=== PATIENT | female | born 1970 | race Caucasian/White ===

== ENCOUNTER 2022-02-12 09:43 | Day surgery (SDC) | payer SELFPAY ==
[~2022-02-12] VITALS: Ht 167 cm; Wt 73.2 kg
[~2022-02-12 09:43] MED LIST: AGM875T PO; HYDR1TAB PO; LISI2.5T PO; LOVA40TA2 PO; MTF500T PO; PENI500T PO
[2022-02-12 10:01] LABS: BASOPHILS % (AUTO) 0 % (0-10); EOSINOPHILS # (AUTO) 0.1 10^3/uL (0.0-0.3); EOSINOPHILS % (AUTO) 1 % (0-10); HEMATOCRIT 45 % (35-52); HEMOGLOBIN 15.8 g/dL (11.5-16.0); LYMPHOCYTES # (AUTO) 2.2 10^3/uL (1.0-4.0); LYMPHOCYTES % (AUTO) 24 % (12-44); MEAN CORPUSCULAR HEMOGLOBIN 29 pg (25-34); MEAN CORPUSCULAR HGB CONC 35 g/dL (32-36); MEAN CORPUSCULAR VOLUME 84 fL (80-99); MEAN PLATELET VOLUME 10.5 fL (9.0-12.2); MONOCYTES # (AUTO) 0.4 10^3/uL (0.0-1.0); MONOCYTES % (AUTO) 4 % (0-12); NEUTROPHILS # (AUTO) 6.4 10^3/uL (1.8-7.8); NEUTROPHILS % (AUTO) 71 % (42-75); PLATELET COUNT 318 10^3/uL (130-400); WHITE BLOOD COUNT 9.1 10^3/uL (4.3-11.0)
[2022-02-12] MEDS ORDERED: NITROGLYCERIN 0.4 MG SL TABS BTL 25'S SL ONE (10:13)
[2022-02-12] MEDS ORDERED: ASPIRIN 81 MG CHEW (CHILDREN'S ASA) ONE (10:13)
[2022-02-12] MEDS ORDERED: ASPIRIN 81 MG CHEW (CHILDREN'S ASA) PO ONE (10:15)
[2022-02-12] MEDS: NITROGLYCERIN 0.4 MG SL TABS BTL 25'S SL PRN ×2 (10:17→10:28)
--- NOTE | 2022-02-12 10:17 | ED Chest Pain ---
General Chief Complaint: Chest Pain Stated Complaint: CHEST/JAW PAIN Source: patient Exam Limitations: no limitations History of Present Illness Date Seen by Provider: Feb 12, 2022 Time Seen by Provider: 10:05 Initial Comments Patient is a 51-year-old female history of diabetes and hypertension, medical noncompliance, currently not on any of her prescribed medications who presents to the emergency department with a chief complaint of chest pressure/heaviness o nset around 2 AM this morning. Patient states that she was restless last night not sleeping well when she noticed the chest pressure. She states it radiates up into the both sides of her jaw. She denies shortness of breath, diaphoresis or nausea with it. She has never had anything like it before. She took some [id number] mg when she got up this morning and ate some oatmeal and felt like the pressure got worse. She states she did take her dog for a walk and became profusely diaphoretic. She currently rates her chest pressure and heaviness at a "5". She states it is still radiating into her jaw. She is a smoker, diabetic, hypertensive. She has a family history of her father who at age 53 from a heart attack. She has not been to the clinic for medications in quite a while. No recent illnesses such as fevers, chills, productive cough. No burning with urination, no diarrhea. No swelling in her legs or cramping in her calves. All other review of systems reviewed and negative except as stated. Timing/Duration: 4-6 hours Severity/Quality: moderate, pressure, tightness (Heaviness) Location: substernal Radiation: jaw Activities at Onset: sleep Prior CP/Workup: no prior chest pain, no prior cardiac workup ASA po JUNIOR ACCOUNT EXECUTIVE: No NTG SL JUNIOR ACCOUNT EXECUTIVE: No Associated Symptoms: denies symptoms Allergies and Home Medications Allergies Coded Allergies: No Known Allergies (Verified Allergy, Unknown, 10/30/06) Patient Home Medication List Home Medication List Reviewed: Yes Amoxicillin/Clavulanate K (Augmentin 875-125 Tablet) 1 Tab Tablet, 1 TAB PO BID Prescribed by: AMANDA BRADLEY on 12/16/11 1605 Lisinopril (Prinivil) 2.5 Mg Tablet, 2.5 MG PO DAILY, (Reported) Entered as Reported by: LONG ORELLANA on 12/16/11 1507 Lovastatin (Lovastatin 40 Mg) 40 Mg Tablet, 1 EACH PO DAILY WITH SUPPER, (Reported) Entered as Reported by: LONG ORELLANA on 12/16/11 1507 Metformin Hcl (Metformin 500 Mg) 500 Mg Tablet, 1 EACH PO BID WITH MEALS, (Reported) Entered as Reported by: LEILA WEINER on 01/25/10 1858 Review of Systems Review of Systems Constitutional: see HPI EENTM: Other (Jaw pain) Respiratory: No Symptoms Reported Cardiovascular: Chest Pain Gastrointestinal: No Symptoms Reported Genitourinary: No Symptoms Reported Musculoskeletal: no symptoms reported Skin: no symptoms reported Psychiatric/Neurological: No Symptoms Reported All Other Systems Reviewed Negative Unless Noted: Yes Past Bxbtyzo-Wecmlc-Bopnbk Hx Past Medical History Reproductive Disorders: No Physical Exam Vital Signs Vital Signs - First Documented 02/12/22 09:55 Temp 36.7 Pulse 108 Resp 18 B/P (MAP) 173/105 (127) Pulse Ox 97 O2 Delivery Room Air Capillary Refill : Height, Weight, BMI Height: '" Weight: lbs. oz. kg; BMI Method: General Appearance: No Apparent Distress, WD/WN HEENT: PERRL/EOMI Neck: Normal Inspection Respiratory: Lungs Clear, Normal Breath Sounds, No Accessory Muscle Use, No Respiratory Distress Cardiovascular: Regular Rate, Rhythm, Normal Peripheral Pulses (2+ radial pulses bilaterally) Gastrointestinal: Normal Bowel Sounds, Non Tender, Soft Extremity: Normal Capillary Refill, Normal Inspection, Normal Range of Motion, Non Tender, No Calf Tenderness, No Pedal Edema Neurologic/Psychiatric: Alert, Oriented x3, No Motor/Sensory Deficits, Normal Mood/Affect Skin: Normal Color, Warm/Dry Progress/Results/Core Measures Results/Orders Lab Results Laboratory Tests Test 02/12/22 09:51 02/12/22 10:05 Range/Units White Blood Count 9.1 4.3-11.0 10^3/uL Red Blood Count 5.39 H 3.80-5.11 10^6/uL Hemoglobin 15.8 11.5-16.0 g/dL Hematocrit 45 35-52 % Mean Corpuscular Volume 84 80-99 fL Mean Corpuscular Hemoglobin 29 25-34 pg Mean Corpuscular Hemoglobin Concent 35 32-36 g/dL Red Cell Distribution Width 13.0 10.0-14.5 % Platelet Count 318 130-400 10^3/uL Mean Platelet Volume 10.5 9.0-12.2 fL Immature Granulocyte % (Auto) 0 % Neutrophils (%) (Auto) 71 42-75 % Lymphocytes (%) (Auto) 24 12-44 % Monocytes (%) (Auto) 4 0-12 % Eosinophils (%) (Auto) 1 0-10 % Basophils (%) (Auto) 0 0-10 % Neutrophils # (Auto) 6.4 1.8-7.8 10^3/uL Lymphocytes # (Auto) 2.2 1.0-4.0 10^3/uL Monocytes # (Auto) 0.4 0.0-1.0 10^3/uL Eosinophils # (Auto) 0.1 0.0-0.3 10^3/uL Basophils # (Auto) 0.0 0.0-0.1 10^3/uL Immature Granulocyte # (Auto) 0.0 0.0-0.1 10^3/uL Prothrombin Time 12.6 12.2-14.7 SEC INR Comment 0.9 0.8-1.4 Activated Partial Thromboplast Time 28 24-35 SEC Sodium Level 133 L 135-145 MMOL/L Potassium Level 4.2 3.6-5.0 MMOL/L Chloride Level 99 98-107 MMOL/L Carbon Dioxide Level 24 21-32 MMOL/L Anion Gap 10 5-14 MMOL/L Blood Urea Nitrogen 11 7-18 MG/DL Creatinine 0.79 0.60-1.30 MG/DL Estimat Glomerular Filtration Rate 90 BUN/Creatinine Ratio 14 Glucose Level 432 *H 70-105 MG/DL Calcium Level 10.2 H 8.5-10.1 MG/DL Corrected Calcium 10.0 8.5-10.1 MG/DL Magnesium Level 1.7 1.6-2.4 MG/DL Total Bilirubin 0.5 0.1-1.0 MG/DL Aspartate Amino Transf (AST/SGOT) 28 5-34 U/L Alanine Aminotransferase (ALT/SGPT) 26 0-55 U/L Alkaline Phosphatase 156 H 40-136 U/L Myoglobin 25.4 10.0-92.0 NG/ML Troponin I < 0.028 <0.028 NG/ML Total Protein 7.2 6.4-8.2 GM/DL Albumin 4.2 3.2-4.5 GM/DL Glucometer 392 H 70-110 MG/DL My Orders Orders - CHAZ GLEZ MD Cbc With Automated Diff (02/12/22:52) Magnesium (02/12/22:52) Chest 1 View, Ap/Pa Only (02/12/22:52) Ekg Tracing (02/12/22:52) Comprehensive Metabolic Panel (02/12/22:52) Myoglobin Serum (02/12/22:52) Protime With Inr (02/12/22) Partial Thromboplastin Time (02/12/22:52) O2 (02/12/22:) Monitor-Rhythm Ecg Trace Only (02/12/22) Lipid Panel (02/13/22 06:00) Ed Iv/Invasive Line Start (02/12/22:52) Troponin I [place] (02/12/22 09:52) Aspirin Chewable Tablet (Baby Aspirin Ch (02/12/22 10:15) Nitroglycerin 0.4 Mg Btl 25's (Nitrostat (02/12/22 10:15) Aspirin Chewable Tablet (Baby Aspirin Ch (02/12/22 10:13) Nitroglycerin 0.4 Mg Btl 25's (Nitrostat (02/12/22 10:13) Ns Iv 1000 Ml (Sodium Chloride 0.9%) (02/12/22 11:00) Insulin (Regular) Human (Novolin R (Per (02/12/22 11:00) Morphine Injection (Morphine Injection (02/12/22 11:32) Medications Given in ED Current Medications Medications Dose Ordered Sig/Sy Route Start Time Stop Time Status Last Admin Dose Admin Aspirin 324 mg ONCE ONCE PO 02/12/22 10:15 02/12/22 10:16 DC 02/12/22 10:16 324 MG Insulin Human Regular 10 unit ONCE ONCE SC 02/12/22 11:00 02/12/22 11:01 DC 02/12/22 11:16 10 UNIT Nitroglycerin 1 TAB Q 5 MIN X 3 NEEDED PRN SL 02/12/22 10:15 02/12/22 10:28 0.4 MG Vital Signs/I&O 02/12/22 02/12/22 02/12/22 09:55 10:17 10:28 Temp 36.7 Pulse 108 104 108 Resp 18 B/P (MAP) 173/105 (127) 134/88 (103) 122/81 (95) Pulse Ox 97 O2 Delivery Room Air Admisison Planning May Need Admission (Planning): 10:57 Progress Progress Note : Time: 10:57 Progress Note Notified by nursing staff that the patient had improvement in chest pain from her initial presentation down to a "3" after 2 sublingual nitro. Her systolic blood pressure went from 170 systolic to 110. Will talk to the rv repairer on- call, Dr. Mark as well as medicine for admission for cardiac stress test. Initial ECG Impression Date: Feb 12, 2022 Initial ECG Impression Time: 09:53 Initial ECG Rate: 103 Initial ECG Rhythm: Normal Sinus Initial ECG Intervals LA interval 145 QRS 117 QTC 404 Comment Sinus tachycardia, no ectopy, no ST segment elevation or depression Diagnostic Imaging Diagonstic Imaging: Xray Plain Films/CT/US/NM/MRI: chest Comments [facility], [place] NAME: [facility] REC#: [id number] PT STATUS: REG ER : 1970 PHYSICIAN: CHAZ GLEZ MD ADMIT DATE: 02/12/22/ER Draft Date of Exam:02/12/22 CHEST 1 VIEW, AP/PA ONLY INDICATION: Chest pain. FINDINGS: The lungs are clear. No failure, effusion, or pneumothorax. IMPRESSION: No acute appearing abnormality. Dictated on workstation # [id number] Dict: 02/12/22 1042 Trans: 02/12/22 1044 [id number] Interpreted by: RENETTA THRASHER Electronically signed by: Departure Communication (Admissions) Time/Spoke to Admitting Phy: 11:[address] Domingo, she will put in que'd orders Time/Spoke to Consulting Phy: 11:[address] Mark - will see in consult Impression Primary Impression: Chest pain Qualified Codes: R07.9 - Chest pain, unspecified Additional Impressions: Hyperglycemia due to diabetes mellitus Medical non-compliance Tobacco use Disposition: ADMITTED INPATIENT Condition: Stable Admissions Decision to Admit Reason: Admit from ER (General) Decision to Admit/Date: Feb 12, 2022 Time/Decision to Admit Time: 10:58 Departure-Patient Inst. Referrals: [facility] (PCP/Family) Primary Care Physician CHAZ GLEZ MD Feb 12, 2022 10:17
[2022-02-12 10:24] LABS: ALBUMIN 4.2 GM/DL (3.2-4.5); INR 0.9 (0.8-1.4); POTASSIUM 4.2 MMOL/L (3.6-5.0); PROTHROMBIN TIME PATIENT 12.6 SEC (12.2-14.7)
[2022-02-12 10:25] LABS: CALCIUM 10.2 MG/DL (8.5-10.1)
[2022-02-12 10:27] LABS: TOTAL PROTEIN 7.2 GM/DL (6.4-8.2)
[2022-02-12 10:29] LABS: BILIRUBIN,TOTAL 0.5 MG/DL (0.1-1.0)
[2022-02-12 10:30] LABS: CREATININE SERUM 0.79 MG/DL (0.60-1.30)
[2022-02-12 10:33] LABS: MAGNESIUM 1.7 MG/DL (1.6-2.4)
--- NOTE | 2022-02-12 10:45 | Diagnostic Imaging Report ---
INDICATION: Chest pain. FINDINGS: The lungs are clear. No failure, effusion, or pneumothorax. IMPRESSION: No acute appearing abnormality. Dictated by: Dictated on workstation # [id number]
[2022-02-12] MEDS ORDERED: inSUlin (REGULAR) HUMAN 1 UNIT/0.01 ML (CHARGE PER UNIT) SC ONE (11:00)
[2022-02-12] MEDS ORDERED: NS IV 1000 ML 1,000 ML IV SCH (11:00)
[2022-02-12] MEDS ORDERED: morphine INJ 10 MG/ML 1ML (SYR OR VIAL) IVP STA (11:32)
[2022-02-12] MEDS ORDERED: PATIENT MAY USE OWN MEDS, ALL PO SCH (13:45)
[2022-02-12] MEDS ORDERED: ONDANSETRON 4 MG/2 ML (SDV) Z0FRAN IVP PRN (13:45)
[2022-02-12] MEDS ORDERED: morphine INJ 4 MG/ML 1 ML (VIAL/SYRINGE) IV PRN (13:45)
--- NOTE | 2022-02-12 14:18 | Consultation-Cardiology ---
HPI-Cardiology Cardiology Consultation: Date of Consultation 02/12/22 Date of Admission 02/12/22 Attending Physician [facility] Admitting Physician Admitting Physician: Marian Domingo MD Attending Physician: Marian Domingo MD Consulting Physician TA BUENROSTRO JR, MD HPI: Time Seen by a Provider: 14:58 Chief Complaint: REASON FOR CONSULTATION: Chest pain. I had the pleasure of seeing Deidre on the cardiac stepdown unit at [facility] in [place], [place] this afternoon. She has no known history of coronary artery disease but does have risk factors of hypertension, hyperlipidemia, type 2 diabetes mellitus, cigarette smoking and family history of premature coronary disease. Early this morning she woke up from sleep with substernal chest tightness. This was in the center of her chest. This radiated towards her jaw. She sat up in bed and waited for this to pass and then went back to sleep. Later on in the morning around 530 she woke up again with substernal chest tightness radiating to her jaw. She felt slightly diaphoretic. She got up and took her son to work and then later came back home and had breakfast. The chest discomfort was waxing and waning at that point time. However, after having breakfast and using the bathroom, the chest discomfort became worse and she had her daughter bring her to the emergency room for further evaluation. In the emergency room, she was given 1 sublingual nitroglycerin with helped with the discomfort but this did not completely resolve. She was later given morphine and the chest discomfort resolved. When I saw the patient, she denied any further chest discomfort. She has had some more mild episodes of similar chest discomfort in the past but these were short-lived and she did not seek medical attention. She denies dyspnea, paroxysmal nocturnal dyspnea, orthopnea, palpitations, lightheadedness, syncope, or ankle edema. She reports that about 1 year ago, she stopped all of her medication. Cost has been an issue. Because of the chest discomfort, a cardiology consultation was requested. Certain portions of this document may have been dictated utilizing voice recognition technology. Inherent to this technology, typographical and gramm atical errors may exist. As much as I am diligent to identify and correct these mistakes, some errors may remain in the document. Review of Systems-Cardiology Review of Systems Other comments Review of 10 organ systems is as per the history of present illness, otherwise negative. All Other Systems Reviewed Negative Unless Noted: Yes HGE-Chfhkw-Tmplcl Hx Patient Social History Smoking Status: Current Everyday Smoker Have you traveled recently?: No Alcohol Use?: Yes Pt feels they are or have been: No Tobacco type used: Cigars, Cigarettes Past Medical History PMH As described under Assessment. Family Medical History Family Medical History: Her father of a myocardial infarction at the age of 56. Allergies and Home Medications Allergies Coded Allergies: NKANo Known Allergies (Verified Allergy, Unknown, 02/12/22) Patient Home Medication List Home Medication List Reviewed: Yes Amoxicillin/Clavulanate K (Augmentin 875-125 Tablet) 1 Tab Tablet, 1 TAB PO BID Prescribed by: AMANDA BRADLEY on 12/16/11 1605 Lisinopril (Prinivil) 2.5 Mg Tablet, 2.5 MG PO DAILY, (Reported) Entered as Reported by: LONG ORELLANA on 12/16/11 1507 Lovastatin (Lovastatin 40 Mg) 40 Mg Tablet, 1 EACH PO DAILY WITH SUPPER, (Reported) Entered as Reported by: LONG ORELLANA on 12/16/11 1507 Metformin Hcl (Metformin 500 Mg) 500 Mg Tablet, 1 EACH PO BID WITH MEALS, (Reported) Entered as Reported by: LEILA WEINER on 01/25/10 1858 Exam Vital Signs Vital Signs Date Time Temp Pulse Resp B/P (MAP) Pulse Ox O2 Delivery O2 Flow Rate FiO2 02/12/22 14:24 98 Room Air 02/12/22 14:20 37.0 89 19 105/81 (89) Physical Exam General: Alert. No acute distress. Well nourished and appears stated age. Eye: Extraocular movements are intact. Conjunctivae are clear. There are no xanthelasma. HENT: Normocephalic. Atraumatic. Carotid pulsations 2/2 without bruits. Poor dentition. Neck: Jugular venous pressure does not appear elevated. No thyromegaly appreciated. Respiratory: Lungs have scattered wheezes bilaterally. Respirations are non- labored. Breath sounds are equal. Symmetrical chest wall expansion. Cardiovascular: Normal rate. Regular rhythm. No murmur. No gallop. Point of maximal impulse is not appear displaced. Good pulses equal in all extremities. No edema. Gastrointestinal: Soft. Normal bowel sounds. Skin: Skin turgor is normal. There is no pallor. Musculoskeletal: No kyphosis or scoliosis appreciated. Neurologic: Alert and oriented to person, place, time. Cranial nerves 3-12 appear grossly intact. The patient has good motor tone strength in the upper and lower extremities bilaterally. Psychiatric: Cooperative. Appropriate mood & affect. Labs Laboratory Tests Test 02/12/22 09:51 02/12/22 10:05 02/12/22 11:50 Range/Units White Blood Count 9.1 4.3-11.0 10^3/uL Red Blood Count 5.39 H 3.80-5.11 10^6/uL Hemoglobin 15.8 11.5-16.0 g/dL Hematocrit 45 35-52 % Mean Corpuscular Volume 84 80-99 fL Mean Corpuscular Hemoglobin 29 25-34 pg Mean Corpuscular Hemoglobin Concent 35 32-36 g/dL Red Cell Distribution Width 13.0 10.0-14.5 % Platelet Count 318 130-400 10^3/uL Mean Platelet Volume 10.5 9.0-12.2 fL Immature Granulocyte % (Auto) 0 % Neutrophils (%) (Auto) 71 42-75 % Lymphocytes (%) (Auto) 24 12-44 % Monocytes (%) (Auto) 4 0-12 % Eosinophils (%) (Auto) 1 0-10 % Basophils (%) (Auto) 0 0-10 % Neutrophils # (Auto) 6.4 1.8-7.8 10^3/uL Lymphocytes # (Auto) 2.2 1.0-4.0 10^3/uL Monocytes # (Auto) 0.4 0.0-1.0 10^3/uL Eosinophils # (Auto) 0.1 0.0-0.3 10^3/uL Basophils # (Auto) 0.0 0.0-0.1 10^3/uL Immature Granulocyte # (Auto) 0.0 0.0-0.1 10^3/uL Prothrombin Time 12.6 12.2-14.7 SEC INR Comment 0.9 0.8-1.4 Activated Partial Thromboplast Time 28 24-35 SEC Sodium Level 133 L 135-145 MMOL/L Potassium Level 4.2 3.6-5.0 MMOL/L Chloride Level 99 98-107 MMOL/L Carbon Dioxide Level 24 21-32 MMOL/L Anion Gap 10 5-14 MMOL/L Blood Urea Nitrogen 11 7-18 MG/DL Creatinine 0.79 0.60-1.30 MG/DL Estimat Glomerular Filtration Rate 90 BUN/Creatinine Ratio 14 Glucose Level 432 *H 70-105 MG/DL Calcium Level 10.2 H 8.5-10.1 MG/DL Corrected Calcium 10.0 8.5-10.1 MG/DL Magnesium Level 1.7 1.6-2.4 MG/DL Total Bilirubin 0.5 0.1-1.0 MG/DL Aspartate Amino Transf (AST/SGOT) 28 5-34 U/L Alanine Aminotransferase (ALT/SGPT) 26 0-55 U/L Alkaline Phosphatase 156 H 40-136 U/L Myoglobin 25.4 10.0-92.0 NG/ML Troponin I < 0.028 <0.028 NG/ML Total Protein 7.2 6.4-8.2 GM/DL Albumin 4.2 3.2-4.5 GM/DL Glucometer 392 H 319 H 70-110 MG/DL Radiology ECHOCARDIOGRAM (02/12/2022): 1. Left ventricle: The cavity size is normal. There is moderate concentric hypertrophy. Systolic function is normal. The estimated ejection fraction is 60- 65%. There were no regional wall motion abnormalities identified. Doppler parameters are consistent with abnormal left ventricular relaxation (grade 1 diastolic dysfunction). 2. Aortic valve: There is mild aortic valve sclerosis. 3. Pulmonary arteries: The estimated pulmonary artery systolic pressure is 25 mmHg assuming a right atrial pressure of 5 mmHg. ECG Impression ECG Comment Sinus tachycardia at 103 bpm with small, nondiagnostic inferior Q waves. Diagnosis/Problems Diagnosis/Problems (1) Chest pain Status: Acute Assessment & Plan: Exact etiology unclear. She does have multiple cardiac risk factors which makes coronary ischemia distinct possibility. Her first troponin level was undetectable. She just had another troponin level drawn. She was given aspirin in the emergency room. Her electrocardiogram shows small inferior Q waves but no evidence of ischemia at rest. Her echocardiogram was unremar kable. I will start her on a proton pump inhibitor in the event that her chest discomfort could be related to esophageal reflux disease. I also recommend a nuclear stress test which we will schedule for tomorrow morning. (2) Abnormal electrocardiogram Assessment & Plan: She has small, nondiagnostic inferior Q waves that do not quite meet criteria for an inferior infarct. However, in light of the chest pain, we will proceed with a stress test as above. (3) Primary hypertension Assessment & Plan: She had been on lisinopril in the past but stopped this 1 year ago when she stopped her other medications. She is currently normotensive. We will continue to monitor her blood pressure. (4) Mixed hyperlipidemia Assessment & Plan: Lipid panel is pending for the morning. We may need to restart a statin medication. (5) Type 2 diabetes mellitus without complication Status: Chronic Assessment & Plan: This will be managed by the hospitalist. I added a hemoglobin A1c to the admission blood work. (6) Family history of premature coronary artery disease Assessment & Plan: She needs to keep all of her modifiable risk factors under good control. (7) Cigarette smoker Status: Chronic Assessment & Plan: She needs to quit smoking. She was counseled in this regard. Problem Qualifiers (1) Chest pain: Chest pain type: unspecified Qualified Codes: R07.9 - Chest pain, unspecified TA BUENROSTRO JR, MD Feb 12, 2022 14:18
[2022-02-12 14:20] VITALS: BP 105/81
[2022-02-12] MEDS ORDERED: FLU QUADRIvalent (6 months+) 60 mcg/0.5 ml 2022-23 (Fluzone) IM ONE (14:30)
[2022-02-12] MEDS ORDERED: REGADENOSON 0.4 MG/5 ML SYR (LEXISCAN) IV ONE (14:45)
[2022-02-12 15:09] VITALS: BP 114/72
[2022-02-12] MEDS ORDERED: PANTOPRAZOLE 40 MG (PROTONIX) TAB PO NR (15:15)
[2022-02-12] MEDS ORDERED: CRAN400C PO (15:36)
[2022-02-12] MEDS ORDERED: MULT-1136 PO (15:36)
[2022-02-12] MEDS ORDERED: CALC600T91 PO (15:36)
--- NOTE | 2022-02-12 15:40 | History & Physical ---
THAI GUZMANNAKt Granado 02/12/22 1540: HPI History of Present Illness: Deidre Aguilar, 51 yo F, admitted to cardiac unit for chief complaint of chest pain. Her chest pain woke her from sleep this morning. She states the pain got bad then tapered off in severity, and then later felt bad again. She describes her pain as sharp at worst and settles down to a dull feeling. At home it was a 10/10 pain but the rest of the day has been fluctuating between a 5-10/10. Pt reports her chest pain got better when she was given morphine in the ED. Nothing has made it worse. Also has had bilateral jaw pain with the chest pain. Came in to the ED with encouragement from her family. This morning she was able to eat oatmeal and drink sugar free pop but that is all. Pt reports has not been taking any medications for the past year due to lack of insurance. She does have DMII and states she monitors her sugars at home at least 3x per day. Usually runs over [address] Mark consulted from Cardiology. ROS: jaw pain, diaphoresis, infrequent headaches; Neg: fevers, nausea, vomiting, constipation, diarrhea, blurry vision PHM: diabetes type II, tremors PSH: 3 c-sections, cholecystectomy, ventral hernia with mesh repair FamHx: F: stroke; M: tremors; Brother: tremors; 2 Sisters (adopted) SocHx: Smokes 1/2-1 ppd for 32 years; denies illicit substances; uses alcohol rarely Source: patient Exam Limitations: no limitations Date seen by provider: Feb 12, 2022 Time Seen by Provider: 15:40 Attending Physician [facility] PCP Admitting Physician: Janny Olson MD Attending Physician: Janny Olson MD Consult Date of Admission Feb 12, 2022 at 11:44 Home Medications Home Medications Reviewed patient Home Medication Reconciliation performed by pharmacy medication reconciliations spray technician and/or nursing. Patients Allergies have been reviewed. Allergies Coded Allergies: NKANo Known Allergies (Verified Allergy, Unknown, 02/12/22) CHL-Bexhct-Rprzut Hx Patient Social History Marrital Status: Number of Children: 3 Number of living children: 3 Employed/Student: unemployed Smoking Status: Current Everyday Smoker (1/2-1 pdd for 32 years) Cigaretts per day: 20 (10 to 20 cigarettes per day) Alcohol Use?: Yes Tobacco type used: Cigarettes Have you traveled recently?: No Immunizations Up To Date Influenza Vaccine Up-to-Date: Yes; Up-to-Date First/Initial COVID19 Vaccinat: 2020 Past Medical History PHM: diabetes type II tremors PSH: 3 c-sections cholecystectomy ventral hernia with mesh repair Family Medical History Significant Family History: Heart Disease, Diabetes Family History: Premature coronary artery disease Review of Systems ([facility]) Constitutional: diaphoresis Cardiovascular: chest pain Musculoskeletal: other (jaw pain every time CP has felt at it's worst) Reviewed Test Results Reviewed Test Results Lab Laboratory Tests 02/12/22 09:51: Red Blood Count 5.39H, Sodium Level 133L, Glucose Level 432*H, Calcium Level 10.2H, Alkaline Phosphatase 156H 02/12/22 10:05: Glucometer 392H 02/12/22 11:50: Glucometer 319H 02/12/22 15:00: Troponin I 0.106H 02/12/22 15:38: Glucometer 181H Radiology CHEST 1 VIEW, AP/PA ONLY INDICATION: Chest pain. FINDINGS: The lungs are clear. No failure, effusion, or pneumothorax. IMPRESSION: No acute appearing abnormality. Physical Exam-([facility]) Physical Exam Vital Signs VS - Last 72 Hours, by Label 02/12/22 02/12/22 02/12/22 02/12/22 09:55 10:17 10:28 13:40 Temp 36.7 37.0 Pulse 108 104 108 82 Resp 18 19 B/P (MAP) 173/105 (127) 134/88 (103) 122/81 (95) 104/79 Pulse Ox 97 98 O2 Delivery Room Air Room Air 02/12/22 02/12/22 02/12/22 02/12/22 13:54 14:06 14:20 14:24 Temp 37.0 Pulse 94 89 Resp 19 B/P (MAP) 105/81 (89) Pulse Ox 98 98 O2 Delivery Room Air Room Air Room Air 02/12/22 15:09 Temp 37.0 Pulse 84 Resp 19 B/P (MAP) 114/72 (86) Pulse Ox 98 O2 Delivery Room Air Capillary Refill : Less Than 3 Seconds General Appearance: WD/WN, no apparent distress Eyes: Bilateral Eye PERRL, Bilateral Eye EOMI HEENT: PERRL/EOMI Respiratory: chest non-tender, lungs clear, no respiratory distress Cardiovascular: normal peripheral pulses Peripheral Pulses: 3+ Dorsalis Pedis (R), 3+ Left Dors-Pedis (L), 3+ Radial Pulses (R), 3+ Radial Pulses (L) Gastrointestinal: normal bowel sounds, non tender, soft, no organomegaly, no pulsatile mass Extremities: normal range of motion, non-tender, normal inspection, no pedal edema, normal capillary refill Neurologic/Psychiatric: alert, oriented x 3 Skin: normal color, warm/dry Assessment/Plan Assessment/Plan Admission Dx Chest Pain Admission Status: Observation (1) Chest pain Status: Acute Assessment & Plan: 02/12: Dr. Mark from Cardiology consulted. Obtain Stress test. Repeat Troponin and ECG. Qualifiers: Qualified Codes: R07.9 - Chest pain, unspecified (2) Hyperglycemia due to diabetes mellitus Status: Acute Assessment & Plan: 02/12: Order A1C. Monitor Glucose. Diabetic diet. (3) Medical non-compliance Status: Acute Assessment & Plan: Restart medications as necessary. Consult social work to help patient with ways to obtain medications. 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 Monitor BP. Low salt diet. Consider medication intervention risk vs benefit. (6) Mixed hyperlipidemia Assessment & Plan: Order Lipid panel. Clinical Quality Measures AMI/AHF: ASA po Prior to arrival: No Supervisory-Addendum Brief Verification & Attestation Participated in pt care: history, physical Personally performed: supervision of care Care discussed with: Medical Student Procedures: supervised JANNY OLSON MD 02/12/22 2019: Home Medications Allergies Coded Allergies: NKANo Known Allergies (Verified Allergy, Unknown, 02/12/22) JHN-Sijahr-Ofacuq Hx Family Medical History Family History: Premature coronary artery disease Physical Exam-([facility]) Physical Exam General Appearance: no apparent distress Eyes: Bilateral Eye EOMI HEENT: other (poor dentition) Neck: No carotid bruit Respiratory: lungs clear, no respiratory distress Cardiovascular: regular rate, rhythm, no murmur Peripheral Pulses: 2+ Dorsalis Pedis (R), 2+ Left Dors-Pedis (L) Gastrointestinal: normal bowel sounds, non tender, soft Extremities: no pedal edema, normal capillary refill Neurologic/Psychiatric: alert, normal mood/affect Skin: warm/dry Supervisory-Addendum Brief Verification & Attestation Procedures: n/a Verification and Attestation of Medical Student E/M Service A medical student performed and documented this service in my presence. I reviewed and verified all information documented by the medical student and made modifications to such information, when appropriate. I personally performed the physical exam and medical decision making. Janny Olson, Feb 12, 2022,20:18 NIDIA GUZMAN Feb 12, 2022 15:40 JANNY OLSON MD Feb 12, 2022 20:19
[2022-02-12] MEDS: inSUlin ASPART (NovoLOG) 1 UNIT/0.01 ML (CHARGE PER UNIT) SC SCH ×2 (15:58→22:01)
[2022-02-12 16:00] VITALS: BP 121/72
[2022-02-12 17:12] VITALS: BP 121/72
[2022-02-12 20:11] VITALS: BP 115/93
[2022-02-12] MEDS: ENOXAPARIN 80 MG/0.8 ML (LOVENOX) SYR SC SCH (22:01)
[2022-02-12] MEDS: ROSUVASTATIN 20 MG (CRESTOR) TABLET PO SCH (22:01)
[2022-02-12 23:49] VITALS: BP 135/84
[2022-02-13] VITALS (16 sets, daily range): BP systolic 90–133; BP diastolic 65–91
[2022-02-13] MEDS: inSUlin ASPART (NovoLOG) 1 UNIT/0.01 ML (CHARGE PER UNIT) SC SCH ×4 (06:33→20:40)
--- NOTE | 2022-02-13 08:38 | Cardiology Progress Note ---
Progress Note-Cardiology Events since last exam Date Seen by Provider: Feb 13, 2022 Time Seen by Provider: 08:34 Events since last exam I am following her due to chest pain and possible NSTEMI. She denies any fu rther chest discomfort since being in the emergency room. She denies dyspnea, palpitations, syncope, or ankle edema. Certain portions of this document may have been dictated utilizing voice recognition technology. Inherent to this technology, typographical and grammatical errors may exist. As much as I am diligent to identify and correct these mistakes, some errors may remain in the document. Vitals Last set of Vitals Signs Vital Signs 02/13/22 02/13/22 04:03 08:23 Temp 36.0 Pulse 89 Resp 20 B/P (MAP) 119/66 (83) Pulse Ox 96 O2 Delivery Room Air Labs Labs Laboratory Tests 02/12/22 09:51 Exam Vital Signs Vital Signs Date Time Temp Pulse Resp B/P (MAP) Pulse Ox O2 Delivery O2 Flow Rate FiO2 02/13/22 08:23 89 20 119/66 (83) 96 Room Air 02/13/22 04:03 36.0 Physical Exam General: Alert. No acute distress. Eye: No xanthelasma. HENT: Normocephalic. Neck: Jugular venous pressure does not appear elevated. Respiratory: Lungs are clear to auscultation. Respirations are non-labored. Breath sounds are equal. Symmetrical chest wall expansion. Cardiovascular: Normal rate. Regular rhythm. No murmur. No gallop. No edema. Gastrointestinal: Soft. Normal bowel sounds. Skin: Warm. Dry. Neurologic: Alert and oriented to person, place, time. Cranial nerves 3-11 grossly intact. Psychiatric: Cooperative. Appropriate mood & affect. Labs Laboratory Tests Test 02/12/22 09:51 02/12/22 10:05 02/12/22 11:50 02/12/22 15:00 Range/Units White Blood Count 9.1 4.3-11.0 10^3/uL Red Blood Count 5.39 H 3.80-5.11 10^6/uL Hemoglobin 15.8 11.5-16.0 g/dL Hematocrit 45 35-52 % Mean Corpuscular Volume 84 80-99 fL Mean Corpuscular Hemoglobin 29 25-34 pg Mean Corpuscular Hemoglobin Concent 35 32-36 g/dL Red Cell Distribution Width 13.0 10.0-14.5 % Platelet Count 318 130-400 10^3/uL Mean Platelet Volume 10.5 9.0-12.2 fL Immature Granulocyte % (Auto) 0 % Neutrophils (%) (Auto) 71 42-75 % Lymphocytes (%) (Auto) 24 12-44 % Monocytes (%) (Auto) 4 0-12 % Eosinophils (%) (Auto) 1 0-10 % Basophils (%) (Auto) 0 0-10 % Neutrophils # (Auto) 6.4 1.8-7.8 10^3/uL Lymphocytes # (Auto) 2.2 1.0-4.0 10^3/uL Monocytes # (Auto) 0.4 0.0-1.0 10^3/uL Eosinophils # (Auto) 0.1 0.0-0.3 10^3/uL Basophils # (Auto) 0.0 0.0-0.1 10^3/uL Immature Granulocyte # (Auto) 0.0 0.0-0.1 10^3/uL Prothrombin Time 12.6 12.2-14.7 SEC INR Comment 0.9 0.8-1.4 Activated Partial Thromboplast Time 28 24-35 SEC Sodium Level 133 L 135-145 MMOL/L Potassium Level 4.2 3.6-5.0 MMOL/L Chloride Level 99 98-107 MMOL/L Carbon Dioxide Level 24 21-32 MMOL/L Anion Gap 10 5-14 MMOL/L Blood Urea Nitrogen 11 7-18 MG/DL Creatinine 0.79 0.60-1.30 MG/DL Estimat Glomerular Filtration Rate 90 BUN/Creatinine Ratio 14 Glucose Level 432 *H 70-105 MG/DL Mean Blood Glucose 321 H <=126 mg/dL Hemoglobin A1c 12.8 H 4.0-5.6 % Calcium Level 10.2 H 8.5-10.1 MG/DL Corrected Calcium 10.0 8.5-10.1 MG/DL Magnesium Level 1.7 1.6-2.4 MG/DL Total Bilirubin 0.5 0.1-1.0 MG/DL Aspartate Amino Transf (AST/SGOT) 28 5-34 U/L Alanine Aminotransferase (ALT/SGPT) 26 0-55 U/L Alkaline Phosphatase 156 H 40-136 U/L Myoglobin 25.4 10.0-92.0 NG/ML Troponin I < 0.028 0.106 H <0.028 NG/ML Total Protein 7.2 6.4-8.2 GM/DL Albumin 4.2 3.2-4.5 GM/DL Thyroid Stimulating Hormone (TSH) 1.63 0.35-4.94 UIU/ML Glucometer 392 H 319 H 70-110 MG/DL Test 02/12/22 15:38 02/12/22 18:53 02/12/22 20:10 02/13/22 04:42 Range/Units Glucometer 181 H 199 H 70-110 MG/DL Troponin I 0.239 H 0.160 H <0.028 NG/ML Triglycerides Level 530 H <150 MG/DL Cholesterol Level 264 H < 200 MG/DL LDL Cholesterol Direct 166 H 1-129 MG/DL VLDL Cholesterol 106 H 5-40 MG/DL HDL Cholesterol 35 L 40-60 MG/DL Test 02/13/22 05:38 Range/Units Glucometer 251 H 70-110 MG/DL Diagnosis/Problems Diagnosis/Problems (1) Non-ST elevation myocardial infarction (NSTEMI), initial care episode Status: Acute Assessment & Plan: Her initial troponin level was undetectable but later in the afternoon and evening, her troponin level became elevated. This is now trending downward. She has no further chest discomfort. This is concerning for non-ST elevation myocardial infarction. She was started on enoxaparin and intensive dose statin medication. She has been receiving aspirin. I will start her on low-dose carvedilol. I recommend further evaluation with a cardiac catheterization. I have explained the benefits and risks of the procedure to the patient and she is in agreement to proceed. I have canceled her stress test. We will tentatively plan on having her undergo a cardiac catheterization later this afternoon. (2) Chest pain Status: Acute Assessment & Plan: As above, it appears as though she may be suffering a non-ST elevation myocardial infarction. Her ejection fraction is normal. We will proceed as above. (3) Primary hypertension Assessment & Plan: She had been on lisinopril in the past but stopped this 1 year ago when she stopped her other medications. I will start her on low-dose beta-branden in light of the possible non-ST elevation myocardial infarction. At some point, we may want to place her on an LATASHA inhibitor or ARB due to her type 2 diabetes for renal protective effects. (4) Mixed hyperlipidemia Assessment & Plan: Her LDL and triglyceride levels are elevated. I have started intensive dose rosuvastatin. Her blood sugars have been markedly elevated which probably explains the elevated triglycerides. As her diabetes comes under control, the triglyceride level should also come down. (5) Type 2 diabetes mellitus without complication Status: Chronic Assessment & Plan: This will be managed by the hospitalist. Her HbA1c was over 12%. Her diabetes is uncontrolled. (6) Family history of premature coronary artery disease Assessment & Plan: She needs to keep all of her modifiable risk factors under good control. (7) Cigarette smoker Status: Chronic Assessment & Plan: She needs to quit smoking. She was counseled in this regard. Problem Qualifiers (1) Chest pain: Chest pain type: unspecified Qualified Codes: R07.9 - Chest pain, unspecified TA BUENROSTRO JR, MD Feb 13, 2022 08:38
[2022-02-13] MEDS ORDERED: NS IV 1000 ML 1,000 ML IV ONE (08:45)
[2022-02-13] MEDS ORDERED: CATHETER FLUSH 10 ML SYR IV PRN (08:45)
[2022-02-13] MEDS: PANTOPRAZOLE 40 MG (PROTONIX) TAB PO SCH (08:50)
[2022-02-13] MEDS: ASPIRIN E.C. 81 MG (ECOTRIN) TAB PO SCH (08:50)
[2022-02-13] MEDS: ENOXAPARIN 80 MG/0.8 ML (LOVENOX) SYR SC SCH (08:50)
[2022-02-13] MEDS: ACETAMINOPHEN 325 MG TABLET PO PRN ×2 (08:50→20:01)
--- NOTE | 2022-02-13 11:46 | Progress Note ---
MEGANNIDIA Loy 02/13/22 1146: Subjective Subjective/Events-last exam Our patient is a 51 yo F admitted to cardiac step down unit after presenting to the ED on 02/12 with chief complaint of chest pain. This morning she is sitting up in bed playing a game on her phone. She states that she is worried because she is now scheduled to have a cardiac cath instead of a stress test. Reports no pain. She is ambulating around her room without difficulty. She slept through most of the night and has not eaten yet today. Reports she woke up with a headache. Denies chest pain, palpitations, shortness of breath, nausea, vomiting, constipation, diarrhea Review of Systems HEENT: Head Aches Objective Exam Last Set of Vital Signs Vital Signs Date Time Temp Pulse Resp B/P (MAP) Pulse Ox O2 Delivery O2 Flow Rate FiO2 02/13/22 08:23 89 20 119/66 (83) 96 Room Air 02/13/22 08:00 36.5 Capillary Refill : Less Than 3 Seconds I&O Intake and Output 02/13/22 00:00 Intake Total 1550 ml Balance 1550 ml Intake Oral 550 ml IV Total 1000 ml # Voids 3 Daily Weight Change Yes, 2-13 lbs General: Alert, Oriented X3, Cooperative, No Acute Distress HEENT: PERRLA, EOMI Lungs: Clear to Auscultation Heart: Regular Rate, Normal S1, Normal S2, No Murmurs Abdomen: Normal Bowel Sounds, Soft Extremities: No Edema, Normal Pulses, No Tenderness/Swelling Skin: No Rashes Neuro: Normal Speech, Normal Tone Psych/Mental Status: Mood NL Results/Procedures Lab Laboratory Tests 02/12/22 11:50: Glucometer 319H 02/12/22 15:00: Troponin I 0.106H 02/12/22 15:38: Glucometer 181H 02/12/22 18:53: Troponin I 0.239H 02/12/22 20:10: Glucometer 199H 02/13/22 04:42: Troponin I 0.160H, Triglycerides Level 530H, Cholesterol Level 264H, LDL Cholesterol Direct 166H, VLDL Cholesterol 106H, HDL Cholesterol 35L 02/13/22 05:38: Glucometer 251H 02/13/22 11:20: Glucometer 180H Laboratory Tests Test 02/12/22 09:51 02/12/22 10:05 02/12/22 11:50 02/12/22 15:00 Range/Units White Blood Count 9.1 4.3-11.0 10^3/uL Red Blood Count 5.39 H 3.80-5.11 10^6/uL Hemoglobin 15.8 11.5-16.0 g/dL Hematocrit 45 35-52 % Mean Corpuscular Volume 84 80-99 fL Mean Corpuscular Hemoglobin 29 25-34 pg Mean Corpuscular Hemoglobin Concent 35 32-36 g/dL Red Cell Distribution Width 13.0 10.0-14.5 % Platelet Count 318 130-400 10^3/uL Mean Platelet Volume 10.5 9.0-12.2 fL Immature Granulocyte % (Auto) 0 % Neutrophils (%) (Auto) 71 42-75 % Lymphocytes (%) (Auto) 24 12-44 % Monocytes (%) (Auto) 4 0-12 % Eosinophils (%) (Auto) 1 0-10 % Basophils (%) (Auto) 0 0-10 % Neutrophils # (Auto) 6.4 1.8-7.8 10^3/uL Lymphocytes # (Auto) 2.2 1.0-4.0 10^3/uL Monocytes # (Auto) 0.4 0.0-1.0 10^3/uL Eosinophils # (Auto) 0.1 0.0-0.3 10^3/uL Basophils # (Auto) 0.0 0.0-0.1 10^3/uL Immature Granulocyte # (Auto) 0.0 0.0-0.1 10^3/uL Prothrombin Time 12.6 12.2-14.7 SEC INR Comment 0.9 0.8-1.4 Activated Partial Thromboplast Time 28 24-35 SEC Sodium Level 133 L 135-145 MMOL/L Potassium Level 4.2 3.6-5.0 MMOL/L Chloride Level 99 98-107 MMOL/L Carbon Dioxide Level 24 21-32 MMOL/L Anion Gap 10 5-14 MMOL/L Blood Urea Nitrogen 11 7-18 MG/DL Creatinine 0.79 0.60-1.30 MG/DL Estimat Glomerular Filtration Rate 90 BUN/Creatinine Ratio 14 Glucose Level 432 *H 70-105 MG/DL Mean Blood Glucose 321 H <=126 mg/dL Hemoglobin A1c 12.8 H 4.0-5.6 % Calcium Level 10.2 H 8.5-10.1 MG/DL Corrected Calcium 10.0 8.5-10.1 MG/DL Magnesium Level 1.7 1.6-2.4 MG/DL Total Bilirubin 0.5 0.1-1.0 MG/DL Aspartate Amino Transf (AST/SGOT) 28 5-34 U/L Alanine Aminotransferase (ALT/SGPT) 26 0-55 U/L Alkaline Phosphatase 156 H 40-136 U/L Myoglobin 25.4 10.0-92.0 NG/ML Troponin I < 0.028 0.106 H <0.028 NG/ML Total Protein 7.2 6.4-8.2 GM/DL Albumin 4.2 3.2-4.5 GM/DL Thyroid Stimulating Hormone (TSH) 1.63 0.35-4.94 UIU/ML Glucometer 392 H 319 H 70-110 MG/DL Test 02/12/22 15:38 02/12/22 18:53 02/12/22 20:10 02/13/22 04:42 Range/Units Glucometer 181 H 199 H 70-110 MG/DL Troponin I 0.239 H 0.160 H <0.028 NG/ML Triglycerides Level 530 H <150 MG/DL Cholesterol Level 264 H < 200 MG/DL LDL Cholesterol Direct 166 H 1-129 MG/DL VLDL Cholesterol 106 H 5-40 MG/DL HDL Cholesterol 35 L 40-60 MG/DL Test 02/13/22 05:38 02/13/22 11:20 Range/Units Glucometer 251 H 180 H 70-110 MG/DL Radiology CHEST 1 VIEW, AP/PA ONLY INDICATION: Chest pain. FINDINGS: The lungs are clear. No failure, effusion, or pneumothorax. IMPRESSION: No acute appearing abnormality. Assessment/Plan Assessment/Plan (1) Chest pain Status: Acute Assessment & Plan: 02/12: Dr. Mark from Cardiology consulted. Obtain Stress test. Repeat Troponin and ECG. 02/13: Repeat ECG in normal sinus rhythm. Repeat troponins are 0.239 at 1853 on 02/12 and 0.160 at 0442 on 02/13. Pt schedules for cardiac cath instead of stress test - await cath result. Qualifiers: Qualified Codes: R07.9 - Chest pain, unspecified (2) Hyperglycemia due to diabetes mellitus Status: Acute Assessment & Plan: 02/12: Order A1C. Monitor Glucose. Diabetic diet. 02/13: Awaiting A1C result. Monitor Glucose. ADA diet. (3) Medical non-compliance Status: Acute Assessment & Plan: Restart medications as necessary. Consult social work to help patient with ways to obtain medications. 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 Monitor BP. Low salt diet. Consider medication intervention risk vs benefit. (6) Mixed hyperlipidemia Assessment & Plan: 02/12: Order Lipid panel. 02/13: Triglycerides are 530. Start Statin therapy. (7) Non-ST elevation myocardial infarction (NSTEMI), initial care episode Status: Acute Assessment & Plan: 02/13: Elevated troponin. Cardiac cath today with Dr. Mark Clinical Quality Measures AMI/AHF: ASA po Prior to arrival: No Supervisory-Addendum Brief Verification & Attestation Participated in pt care: history, physical Personally performed: supervision of care Care discussed with: Medical Student Procedures: supervised MARIAN OLSON MD 02/13/22 1308: Supervisory-Addendum Brief Verification & Attestation Procedures: n/a Verification and Attestation of Medical Student E/M Service A medical student performed and documented this service in my presence. I reviewed and verified all information documented by the medical student and made modifications to such information, when appropriate. I personally performed the physical exam and medical decision making. Marian Olson, Feb 13, 2022,13:08 NIDIA GUZMAN Feb 13, 2022 11:46 MARIAN OLSON MD Feb 13, 2022 13:08
[2022-02-13] MEDS ORDERED: HEParin (CATH LAB) 2,000 ML IV ONE (13:56)
[2022-02-13] MEDS ORDERED: LIDOCAINE 1% INJ 30 ML (XYLOCAINE) VIAL ONE (13:56)
[2022-02-13] MEDS ORDERED: NS IV 1000 ML 1,000 ML ONE (13:56)
[2022-02-13] MEDS ORDERED: MIDAZOLAM 5 MG/5 ML (VERSED) VIAL ONE (13:59)
[2022-02-13] MEDS ORDERED: HEParin 1000 UNIT/ML (10ML VIAL) FOR BOLUS ONE (13:59)
[2022-02-13] MEDS ORDERED: NITRO DRIP 25000 MCG/D5W 250 ML IV ONE (13:59)
[2022-02-13] MEDS ORDERED: VERAPAMIL 5 MG/2 ML (CALAN) VIAL IV ONE (13:59)
[2022-02-13] MEDS ORDERED: fentaNYL INJ 100 MCG/2 ML AMP ONE (13:59)
--- NOTE | 2022-02-13 14:32 | Pre-Op Note & Conscious Sedat ---
Pre-Operative Progress Note Date H&P Reviewed: Feb 13, 2022 Time H&P Reviewed: 14:31 History & Physical: H&P Reviewed, Patient Examed, No changes noted Changes from last HP Trononin levels became elevated since admission, consistent with possible NSTEMI. Pre-Op Diagnosis: NSTEMI Conscious Sedation Pre-Proced ASA Score 2 For ASA 3 and 4: Consider anesthesia and medical clearance. Also, for patients with a history of failed moderate sedation consider anesthesia. Airway Lungs Heart ASA score ASA 1: a normal healthy patient ASA 2: a patient with a mild systemic disease (mid diabetes, controlled hypertension, obesity ASA 3: a patient with a severe systemic disease that limits activity (angina, COPD, prior Myocardial infarction) ASA 4: a patient with an incapacitating disease that is a constant threat to life (CHF, renal failure) ASA 5: a moribund patient not expected to survive 24 hrs. (ruptured aneurysm) ASA 6: a declared brain- patient whose organs are being harvested. For emergent operations, add the letter E after the classification Mallampati Classification Grade 1 Sedation Plan Analgesia, Amnesia, Plan communicated to team members, Discussed options with patient/fam, Discussed risks with patient/fam The patient is an appropriate candidate to undergo the planned procedure, sedation, and anesthesia. The patient immediately re-assessed prior to indication. Given her current clinical status, she is considered mildly frail. She has no history of heart failure. TA BUENROSTRO JR, MD Feb 13, 2022 14:32
--- NOTE | 2022-02-13 15:16 | Cardiac Cath Report ---
CARDIAC CATHETERIZATION DATE OF PROCEDURE: 02/13/2022 INDICATION: Non-ST elevation myocardial infarction. HISTORY: The patient is a 51 year old female with no previously known history of coronary artery disease but with multiple cardiac risk factors who presented to the hospital with approximately a 1 day history of chest pain. Her initial troponin level was undetectable over the course of the past 24 hours, her troponin levels became positive and then started to fall which is consistent with an acute myocardial infarction. She had no evidence of ST elevation on her electrocardiogram. Because of the non-ST elevation myocardial infarction, she is now referred for further evaluation with a cardiac catheterization. Given her current clinical status, she is considered moderately frail. She has no history of heart failure. PROCEDURES PERFORMED: 1. Left heart catheterization with hemodynamic measurements. 2. Diagnostic [place] coronary angiography. PROCEDURE DESCRIPTION: After informed consent and in the fasting state, left heart catheterization was performed through the right radial artery utilizing a 6 [place]uran system by percutaneous approach. A 5 [place] JR4 and a 5 [place] JL 3.5 catheter were utilized for the procedure. All catheters were exchanged over a guidewire. Following the procedure, a vascular band was applied to the radial artery access site and the sheath was removed with good hemostasis. RESULTS: HEMODYNAMICS: The aortic pressure was 139/72 mmHg. The left ventricular pressure was 139/0 mmHg with a left ventricular end-diastolic pressure of 8 mmHg. There was no significant pressure gradient upon pullback across aortic valve. CORONARY ANGIOGRAPHY: Left main coronary artery: Free of significant disease. Left anterior descending coronary artery: There was a 70% stenosis in the midsegment between the first septal recreation officer and first large diagonal branch with JACKY-3 flow. There was another 70% stenosis in the distal segment with JACKY-3 flow. Left circumflex coronary artery: Dominant and there was an eccentric 50% stenosis proximally that had the appearance of the healed plaque rupture. There was a 70% stenosis in the midsegment which formed a bifurcation lesion with the first large obtuse marginal branch with JACKY-2 flow and a Caldera classification of 0, 1, 0. There was another 70% stenosis in the proximal segment of the left posterolateral branch with JACKY-2 flow. This formed a bifurcation lesion with the left circumflex coronary artery proper and the left posterior descending coronary artery branch with a Caldera classification of 0, 0, 1. Right coronary artery: Small, nondominant and there was a 99% stenosis proximally with JACKY-1 flow. I suspect this was the ischemia related vessel for the acute myocardial infarction. This was approximately a 2 mm vessel. IMPRESSION: 1. Normal left heart pressures. 2. Severe [place] three-vessel coronary artery disease in a left dominant system. The left main coronary artery and anatomic proximal left anterior descending coronary artery appeared to be spared but functionally, the lesion in the mid left anterior descending coronary artery provides anatomic territory of the proximal left anterior descending coronary artery. 3. The patient is known to have normal left ventricular systolic function with an estimated ejection fraction of 60-65% by echocardiogram that was performed on 02/12/2022. 4. I will consider the referring the patient for coronary artery bypass surgery. This could potentially be done as an outpatient. Certain portions of this document may have been dictated utilizing voice recognition technology. Inherent to this technology, typographical and grammatical errors may exist. As much as I am diligent to identify and correct these mistakes, some errors may remain in the document. TA BUENROSTRO JR, MD Feb 13, 2022 15:16
[2022-02-13] MEDS: NS IV 1000 ML 1,000 ML IV SCH (15:45)
[2022-02-13] MEDS: ROSUVASTATIN 20 MG (CRESTOR) TABLET PO SCH (20:00)
[2022-02-14 00:15] VITALS: BP 151/86
[2022-02-14] MEDS: NS IV 1000 ML 1,000 ML IV SCH (01:08)
[2022-02-14 04:00] VITALS: BP 131/59
[2022-02-14 06:06] LABS: HEMATOCRIT 40 % (35-52); HEMOGLOBIN 13.5 g/dL (11.5-16.0); MEAN CORPUSCULAR HEMOGLOBIN 29 pg (25-34); MEAN CORPUSCULAR HGB CONC 34 g/dL (32-36); MEAN CORPUSCULAR VOLUME 86 fL (80-99); MEAN PLATELET VOLUME 11.2 fL (9.0-12.2); PLATELET COUNT 283 10^3/uL (130-400); WHITE BLOOD COUNT 6.5 10^3/uL (4.3-11.0)
[2022-02-14 06:21] LABS: ALBUMIN 3.3 GM/DL (3.2-4.5); POTASSIUM 3.8 MMOL/L (3.6-5.0)
[2022-02-14 06:22] LABS: CALCIUM 9.8 MG/DL (8.5-10.1)
[2022-02-14 06:24] LABS: TOTAL PROTEIN 5.8 GM/DL (6.4-8.2)
[2022-02-14 06:25] LABS: BILIRUBIN,TOTAL 0.4 MG/DL (0.1-1.0)
[2022-02-14 06:27] LABS: CREATININE SERUM 0.58 MG/DL (0.60-1.30)
[2022-02-14] MEDS: inSUlin ASPART (NovoLOG) 1 UNIT/0.01 ML (CHARGE PER UNIT) SC SCH ×2 (06:31→11:18)
[2022-02-14 07:29] VITALS: BP 125/68
[2022-02-14] MEDS: ASPIRIN E.C. 81 MG (ECOTRIN) TAB PO SCH (08:01)
[2022-02-14] MEDS: PANTOPRAZOLE 40 MG (PROTONIX) TAB PO SCH (08:02)
--- NOTE | 2022-02-14 08:23 | Cardiology Progress Note ---
Progress Note-Cardiology Events since last exam Date Seen by Provider: Feb 14, 2022 Time Seen by Provider: 08:19 Events since last exam I am following her due to NSTEMI. She denies any further chest discomfort since admission. She denies dyspnea, palpitations, syncope, or ankle edema. She is thinking she might want to go to [place] for an evaluation for bypass surgery. Certain portions of this document may have been dictated utilizing voice recognition technology. Inherent to this technology, typographical and grammatical errors may exist. As much as I am diligent to identify and correct these mistakes, some errors may remain in the document. Vitals Last set of Vitals Signs Vital Signs 02/14/22 07:29 Temp 36.4 Pulse 81 Resp 16 B/P (MAP) 125/68 (87) Pulse Ox 97 O2 Delivery Room Air Labs Labs Laboratory Tests 02/14/22 05:07 Exam Vital Signs Vital Signs Date Time Temp Pulse Resp B/P (MAP) Pulse Ox O2 Delivery O2 Flow Rate FiO2 02/14/22 07:29 36.4 81 16 125/68 (87) 97 Room Air Physical Exam General: Alert. No acute distress. Eye: No xanthelasma. HENT: Normocephalic. Neck: Jugular venous pressure does not appear elevated. Respiratory: Lungs are clear to auscultation. Respirations are non-labored. Breath sounds are equal. Symmetrical chest wall expansion. Cardiovascular: Normal rate. Regular rhythm. No murmur. No gallop. No edema. Gastrointestinal: Soft. Normal bowel sounds. Skin: Warm. Dry. Neurologic: Alert and oriented to person, place, time. Cranial nerves 3-11 grossly intact. Psychiatric: Cooperative. Appropriate mood & affect. Labs Laboratory Tests Test 02/13/22 11:20 02/13/22 16:02 02/13/22 20:31 02/14/22 05:07 Range/Units Glucometer 180 H 158 H 256 H 70-110 MG/DL White Blood Count 6.5 4.3-11.0 10^3/uL Red Blood Count 4.65 3.80-5.11 10^6/uL Hemoglobin 13.5 11.5-16.0 g/dL Hematocrit 40 35-52 % Mean Corpuscular Volume 86 80-99 fL Mean Corpuscular Hemoglobin 29 25-34 pg Mean Corpuscular Hemoglobin Concent 34 32-36 g/dL Red Cell Distribution Width 13.2 10.0-14.5 % Platelet Count 283 130-400 10^3/uL Mean Platelet Volume 11.2 9.0-12.2 fL Sodium Level 138 135-145 MMOL/L Potassium Level 3.8 3.6-5.0 MMOL/L Chloride Level 107 98-107 MMOL/L Carbon Dioxide Level 23 21-32 MMOL/L Anion Gap 8 5-14 MMOL/L Blood Urea Nitrogen 9 7-18 MG/DL Creatinine 0.58 L 0.60-1.30 MG/DL Estimat Glomerular Filtration Rate 109 BUN/Creatinine Ratio 16 Glucose Level 175 H 70-105 MG/DL Calcium Level 9.8 8.5-10.1 MG/DL Corrected Calcium 10.4 H 8.5-10.1 MG/DL Total Bilirubin 0.4 0.1-1.0 MG/DL Aspartate Amino Transf (AST/SGOT) 52 H 5-34 U/L Alanine Aminotransferase (ALT/SGPT) 87 H 0-55 U/L Alkaline Phosphatase 189 H 40-136 U/L Total Protein 5.8 L 6.4-8.2 GM/DL Albumin 3.3 3.2-4.5 GM/DL Diagnosis/Problems Diagnosis/Problems (1) Non-ST elevation myocardial infarction (NSTEMI), initial care episode Status: Acute Assessment & Plan: This was most likely due to significant stenosis of the nondominant right coronary artery which is very small and possibly too small for a stent. However, she also has extensive disease of the left coronary system. She has a normal ejection fraction. In light of her diabetes and three-vessel coronary artery disease, I recommend coronary bypass surgery. This could be done as an outpatient. I have contacted one of the surgeons at [facility] and I am waiting for him to respond. We will continue aspirin, carvedilol and intensive dose statin medication. No P2Y12 inhibitor due to her need for open heart surgery. (2) Primary hypertension Assessment & Plan: She had been on lisinopril in the past but stopped this 1 year ago when she stopped her other medications. I started her on low-dose beta-branden in light of the possible non-ST elevation myocardial infarction. At some point, we may want to place her on an LATASHA inhibitor or ARB due to her type 2 diabetes for renal protective effects. (3) Mixed hyperlipidemia Assessment & Plan: Her LDL and triglyceride levels are elevated. I have started intensive dose rosuvastatin. Her blood sugars have been markedly elevated which probably explains the elevated triglycerides. As her diabetes comes under control, the triglyceride level should also come down. (4) Coronary artery disease with unstable angina pectoris Assessment & Plan: As above. (5) Type 2 diabetes mellitus without complication Status: Chronic Assessment & Plan: This will be managed by the hospitalist. Her HbA1c was over 12%. Her diabetes is uncontrolled. (6) Family history of premature coronary artery disease Assessment & Plan: She needs to keep all of her modifiable risk factors under good control. (7) Cigarette smoker Status: Chronic Assessment & Plan: She needs to quit smoking. She was counseled in this regard. TA BUENROSTRO JR, MD Feb 14, 2022 08:23
[2022-02-14] MEDS ORDERED: ROSU20TA32 PO (08:26)
[2022-02-14] MEDS ORDERED: ASPI-1238 PO (08:26)
[2022-02-14] MEDS ORDERED: CARV3.122 PO (08:26)
[2022-02-14] MEDS ORDERED: PANT40TA52 PO (08:26)
[2022-02-14] MEDS ORDERED: NITR0.4T42 SL (08:26)
[2022-02-14] MEDS ORDERED: ENOXAPARIN 40 MG/0.4 ML (LOVENOX) SYR SC SCH (09:00)
[2022-02-14] MEDS ORDERED: ENOXAPARIN 80 MG/0.8 ML (LOVENOX) SYR SC SCH (09:00)
[2022-02-14] MEDS ORDERED: METF-399 PO (10:11)
[2022-02-14] MEDS ORDERED: NICO-685 TD (10:11)
--- NOTE | 2022-02-14 10:22 | Diagnostic Imaging Report ---
PROCEDURE: US Hepatic (Liver). TECHNIQUE: Multiple real-time grayscale images were obtained over the right upper quadrant in various projections. INDICATION: Elevated liver enzymes Liver parenchyma is homogeneous with normal echotexture. Portal vein is patent with hepatopetal flow. The gallbladder is surgically absent. The common duct is not dilated. Visualized portions of the pancreas are unremarkable. Aorta and IVC appear normal. Right kidney measures 10.8 cm in length and appears normal. There is no ascites. IMPRESSION: Unremarkable limited abdominal ultrasound Dictated by: Dictated on workstation # [id number]
[2022-02-14 10:47] VITALS: BP 135/71
[2022-02-14 11:28] VITALS: BP 135/71
--- NOTE | 2022-02-14 11:53 | Discharge Summary ---
NIDIA GUZMAN Loy 02/14/22 1151: Discharge Summary Hospital Course Problems Reviewed?: Yes Problems/Diagnosis: (1) Chest pain Status: Acute Assessment & Plan: Cardiac cath performed and patient referred for coronary artery bypass surgery Qualifiers: Qualified Codes: R07.9 - Chest pain, unspecified (2) Hyperglycemia due to diabetes mellitus Status: Acute Assessment & Plan: Monitor Glucose and ADA diet at home. (3) Medical non-compliance Status: Acute Assessment & Plan: Refer to [facility] for medications and patient care coordination with Patient Navigator (4) Tobacco use Status: Acute Assessment & Plan: Orthopedic Podiatrist on smoking cessation (5) Primary hypertension Assessment & Plan: continue carvedilol (6) Mixed hyperlipidemia Assessment & Plan: Continue rosuvastatin (7) Non-ST elevation myocardial infarction (NSTEMI), initial care episode Status: Acute Assessment & Plan: Cardiac cath with Dr. Mark. Referral for CABG. Hospital Course Date of Admission: Feb 12, 2022 at 11:44 Admission Diagnosis : [facility]: 02/14/22 Discharge Diagnosis: Coronary Artery Disease Hospital Course: See Problem List Labs and Pending Lab Test: Laboratory Tests 02/13/22 16:02: Glucometer 158H 02/13/22 20:31: Glucometer 256H 02/14/22 05:07: White Blood Count 6.5, Red Blood Count 4.65, Hemoglobin 13.5, Hematocrit 40, Mean Corpuscular Volume 86, Mean Corpuscular Hemoglobin 29, Mean Corpuscular Hemoglobin Concent 34, Red Cell Distribution Width 13.2, Platelet Count 283, Mean Platelet Volume 11.2, Sodium Level 138, Potassium Level 3.8, Chloride Level 107, Carbon Dioxide Level 23, Anion Gap 8, Blood Urea Nitrogen 9, Creatinine 0.58L, Estimat Glomerular Filtration Rate 109, BUN/Creatinine Ratio 16, Glucose Level 175H, Calcium Level 9.8, Corrected Calcium 10.4H, Total Bilirubin 0.4, Aspartate Amino Transf (AST/SGOT) 52H, Alanine Aminotransferase (ALT/SGPT) 87H, Alkaline Phosphatase 189H, Total Protein 5.8L, Albumin 3.3 02/14/22 10:30: Glucometer 230H Home Meds Active Nicotine Patch (Nicotine) 21 Mg/24 Hour Patch.td24 21 Mg TD DAILY 42 Days Metformin HCl 1,000 Mg Tablet 1,000 Mg PO BID Pantoprazole Sodium 40 Mg Tablet.dr 40 Mg PO DAILY Aspirin EC (Aspirin) 81 Mg Tablet.dr 81 Mg PO DAILY Carvedilol 3.125 Mg Tablet 3.125 Mg PO BID Nitroglycerin 0.4 Mg Tab.subl 0.4 Mg SL NEEDED PRN Rosuvastatin Calcium 20 Mg Tablet 20 Mg PO HS Reported Calcium (Calcium Carbonate) 600 Mg Calcium (1500 Mg) Tablet 600 Mg PO DAILY Cranberry 400 Mg Capsule 400 Mg PO DAILY Multivitamin 1 Each Tablet 1 Each PO DAILY Assessment/Pt DC Instructions CABG consult being arranged by cardiology. Follow up with PCP within one week of discharge. Discharge Diet: ADA Diet Activity as Tolerated: Yes Orders-Post D/C & Referrals Medications sent to [facility] on [address] [facility] Consultations Cardiology - Dr. Mark Discharge Physical Examination Allergies: Coded Allergies: NKANo Known Allergies (Verified Allergy, Unknown, 02/12/22) Neurologic/Psychiatric: Alert, Oriented x3 Discharge Summary Date of Admission Feb 12, 2022 at 11:44 Date of Discharge Discharge Date: Feb 14, 2022 Clinical Quality Measures AMI/AHF: ASA po Prior to arrival: No Supervisory-Addendum Brief Verification & Attestation Participated in pt care: history Personally performed: exam, MDM, supervision of care Care discussed with: Medical Student Procedures: supervised JANNY OLSON MD 02/14/22 1218: Discharge Summary Discharge Physical Examination Allergies: Coded Allergies: NKANo Known Allergies (Verified Allergy, Unknown, 02/12/22) General Appearance: No Apparent Distress, WD/WN Respiratory: Lungs Clear Cardiovascular: Regular Rate, Rhythm, No Murmur Gastrointestinal: Normal Bowel Sounds, Non Tender, Soft Extremity: No Pedal Edema Skin: Normal Color, Warm/Dry Neurologic/Psychiatric: Alert, Normal Mood/Affect Supervisory-Addendum Brief Verification & Attestation I personally saw and examined patient and did my own history and exam which confirmed the findings documented by the medical student. I directed the plan of care as documented by the student. NIDIA GUZMAN Feb 14, 2022 11:51 JANNY OLSON MD Feb 14, 2022 12:18
== END 2022-02-14 11:42 | disposition home or self-care (01) ==
LOC: EDUNIT# 09:43 → ER 09:46 → CSD 11:44 → UNDOADMOB 11:44 → CSD 13:50 → CATH 14:10 → UNDODISOB 02-14 11:42 → CATH 02-14 11:42
PROVIDERS: ATTEND Family Medicine
DX: I21.4 Non-ST elevation (NSTEMI) myocardial infarction (principal); E11.65 Type 2 diabetes mellitus with hyperglycemia; I10 Essential (primary) hypertension; E78.2 Mixed hyperlipidemia; F17.210 Nicotine dependence, cigarettes, uncomplicated; Z91.199 Patient's noncompliance with other medical treatment and regimen due to unspecified reason; Z23 Encounter for immunization; I25.110 Atherosclerotic heart disease of native coronary artery with unstable angina pectoris; Z79.84 Long term (current) use of oral hypoglycemic drugs
CPT/HCPCS: 71045; 76705; 80053 ×2; 80061; 82947 ×3; 83036; 83735; 83874; 84443; 84484 ×2; 85025; 85027; 85610; 85730; 93005 ×3; 93041; 93458; 96361; 96372 ×4; 96374; 99284; C1894; C8929; G0008; G0378; 36415; 90471; 90686; 93306

== ENCOUNTER 2022-03-04 06:54 | Emergency (ER) | payer SELFPAY ==
[~2022-03-04] VITALS: Ht 167 cm; Wt 78.3 kg
[~2022-03-04 06:54] MED LIST changes: +ASPI-1238 PO; +CALC600T91 PO; +CARV3.122 PO; +CRAN400C PO; +METF-399 PO; +MULT-1136 PO; +NICO-685 TD; +NITR0.4T42 SL; +PANT40TA52 PO; +ROSU20TA32 PO
[2022-03-04 07:15] LABS: BASOPHILS % (AUTO) 0 % (0-10); EOSINOPHILS # (AUTO) 0.1 10^3/uL (0.0-0.3); EOSINOPHILS % (AUTO) 1 % (0-10); HEMATOCRIT 40 % (35-52); HEMOGLOBIN 14.1 g/dL (11.5-16.0); LYMPHOCYTES # (AUTO) 3.7 10^3/uL (1.0-4.0); LYMPHOCYTES % (AUTO) 35 % (12-44); MEAN CORPUSCULAR HEMOGLOBIN 29 pg (25-34); MEAN CORPUSCULAR HGB CONC 35 g/dL (32-36); MEAN CORPUSCULAR VOLUME 83 fL (80-99); MONOCYTES # (AUTO) 0.6 10^3/uL (0.0-1.0); MONOCYTES % (AUTO) 5 % (0-12); NEUTROPHILS # (AUTO) 6.3 10^3/uL (1.8-7.8); NEUTROPHILS % (AUTO) 59 % (42-75); PLATELET COUNT 428 10^3/uL (130-400); WHITE BLOOD COUNT 10.8 10^3/uL (4.3-11.0)
[2022-03-04] MEDS ORDERED: ASPIRIN 81 MG CHEW (CHILDREN'S ASA) PO ONE (07:15)
[2022-03-04] MEDS: NITROGLYCERIN 0.4 MG SL TABS BTL 25'S SL PRN ×3 (07:18→07:38)
[2022-03-04 07:33] LABS: INR 0.9 (0.8-1.4); POTASSIUM 4.1 MMOL/L (3.6-5.0); PROTHROMBIN TIME PATIENT 12.7 SEC (12.2-14.7)
[2022-03-04 07:35] LABS: CALCIUM 10.3 MG/DL (8.5-10.1)
[2022-03-04 07:37] LABS: BILIRUBIN,TOTAL 0.3 MG/DL (0.1-1.0)
--- NOTE | 2022-03-04 07:37 | Diagnostic Imaging Report ---
INDICATION: Chest pain Single AP view of the chest is obtained with comparison made to study of 02/12/2022 FINDINGS: Heart size and pulmonary vascularity are within normal limits, and the lungs are clear, bilaterally. IMPRESSION: Unremarkable chest. Dictated by: Dictated on workstation # [id number]
[2022-03-04 07:39] LABS: CREATININE SERUM 0.71 MG/DL (0.60-1.30)
[2022-03-04 07:42] LABS: MAGNESIUM 1.3 MG/DL (1.6-2.4)
--- NOTE | 2022-03-04 07:48 | ED Chest Pain ---
General Chief Complaint: Chest Pain Stated Complaint: CP,JAW PX Nursing Triage Note: PT STATES CHEST PAIN FOR ABOUT 3 WKS OFF AND ON, PAIN LAST NIGHT SO BAD SHE TOOK A NITRO, PAIN IN HER JAW ALSO THIS MORNING, ONE 81 MG ASA THIS MORNING ALONG WITH HER OTHER MEDS Source: patient, old records Exam Limitations: no limitations History of Present Illness Date Seen by Provider: Mar 04, 2022 Time Seen by Provider: 07:07 Initial Comments This 51-year-old woman presents to the emergency room with complaints of chest pain last night that radiated to her right jaw. This pain was alleviated by nitroglycerin. She woke this morning after 0600 with the same type of pain. She did not take any nitroglycerin and presented directly to the emergency room. She did take her other morning cardiac medications including aspirin 81 mg and carvedilol 3.125 mg. She had cardiac angiography about 3 weeks ago as part of work-up for NSTEMI. She was referred to Dr. Spears at [facility] for possible CABG. Dr. Spears had her obtain some additional testing and she is awaiting scheduling of CABG. She denies any associated symptoms. There are no alleviating or exacerbating factors. Dr. Mandel is her primary care provider. She denies drug or alcohol use. She quit smoking 3 weeks ago. Allergies and Home Medications Allergies Coded Allergies: BENNYANo Known Allergies (Verified Allergy, Unknown, 02/12/22) Patient Home Medication List Home Medication List Reviewed: Yes Aspirin (Aspirin EC) 81 Mg Tablet.dr, 81 MG PO DAILY Prescribed by: TA MARK JR, MD on 02/14/22 08 Calcium Carbonate (Calcium) 600 Mg Calcium (1500 Mg) Tablet, 600 MG PO DAILY, (Reported) Entered as Reported by: JUMANA KLINE on 02/12/22 153 Carvedilol (Carvedilol) 3.125 Mg Tablet, 3.125 MG PO BID Prescribed by: TA MARK JR, MD on 02/14/22 08 Cranberry (Cranberry) 400 Mg Capsule, 400 MG PO DAILY, (Reported) Entered as Reported by: JUMANA KLINE on 02/12/22 1536 Metformin HCl (Metformin HCl) 1,000 Mg Tablet, 1,000 MG PO BID Prescribed by: JANNY OLSON on 02/14/22 1011 Multivitamin (Multivitamin) 1 Each Tablet, 1 EACH PO DAILY, (Reported) Entered as Reported by: JUMANA KLINE on 02/12/22 1536 Nicotine (Nicotine Patch) 21 Mg/24 Hour Patch.td24, 21 MG TD DAILY Prescribed by: JANNY OLSON on 02/14/22 1011 Nitroglycerin (Nitroglycerin) 0.4 Mg Tab.subl, 0.4 MG SL NEEDED PRN for CHEST PAIN (ANGINA) Prescribed by: TA MARK JR, MD on 02/14/22825 Pantoprazole Sodium (Pantoprazole Sodium) 40 Mg Tablet.dr, 40 MG PO DAILY Prescribed by: TA MARK JR, MD on 02/14/22825 Rosuvastatin Calcium (Rosuvastatin Calcium) 20 Mg Tablet, 20 MG PO HS Prescribed by: TA MARK JR, MD on 02/14/22825 Review of Systems Review of Systems Constitutional: no symptoms reported EENTM: No Symptoms Reported Respiratory: No Symptoms Reported Cardiovascular: See HPI Gastrointestinal: No Symptoms Reported Genitourinary: No Symptoms Reported Musculoskeletal: no symptoms reported Skin: no symptoms reported Psychiatric/Neurological: No Symptoms Reported Endocrine: No Symptoms Reported Hematologic/Lymphatic: No Symptoms Reported Past Azdstch-Eqnena-Cpuhxx Hx Patient Social History Tobacco Use?: Yes Tobacco type used: Cigarettes Smoking Status: Former Smoker Substance use?: No Alcohol Use?: No Immunizations Up To Date First/Initial COVID19 Vaccinat: 2020 Second COVID19 Vaccination Manas: jan 24 Third COVID19 Vaccination Date: jan 24 Past Medical History Surgery/Hospitalization HX: diabetes, insulin dependent 3 CESEAREAN, GALLBLADDER, UMBILCAL HERNIA REPAIR, AMI Surgeries: Yes Abdominal (Umbilical hernia), Cardiac (Cardiac angiography February 2022 with severe three-vessel disease), Section, Gallbladder Respiratory: No Cardiac: Yes Coronary Artery Disease, Hypertension Neurological: No : No Last Menstrual Period: May 05, 2021 Reproductive Disorders: No Genitourinary: No Gastrointestinal: No Musculoskeletal: No Endocrine: Yes Diabetes, Insulin dep HEENT: No Cancer: No Psychosocial: No Family Medical History Reviewed Nursing Family Hx Premature coronary artery disease Heart Disease, Diabetes Physical Exam Vital Signs Vital Signs - First Documented 03/04/22 03/04/22 07:03 07:41 Temp 35.5 Pulse 109 Resp 20 B/P (MAP) 159/73 (101) Pulse Ox 97 O2 Delivery Room Air O2 Flow Rate 2.00 Capillary Refill : Less Than 3 Seconds Height, Weight, BMI Height: '" Weight: lbs. oz. kg; 28.00 BMI Method: General Appearance: No Apparent Distress, WD/WN HEENT: PERRL/EOMI Neck: Normal Inspection; No JVD Respiratory: Lungs Clear, Normal Breath Sounds, No Accessory Muscle Use, No Respiratory Distress Cardiovascular: No Edema, No Murmur, Tachycardia (Regular) Gastrointestinal: Normal Bowel Sounds, Non Tender, Soft Extremity: Normal Inspection, Non Tender, No Calf Tenderness, No Pedal Edema Neurologic/Psychiatric: Alert, Oriented x3, No Motor/Sensory Deficits, Normal Mood/Affect Skin: Normal Color, Warm/Dry Progress/Results/Core Measures Results/Orders Lab Results Laboratory Tests Test 03/04/22 07:12 Range/Units White Blood Count 10.8 4.3-11.0 10^3/uL Red Blood Count 4.85 3.80-5.11 10^6/uL Hemoglobin 14.1 11.5-16.0 g/dL Hematocrit 40 35-52 % Mean Corpuscular Volume 83 80-99 fL Mean Corpuscular Hemoglobin 29 25-34 pg Mean Corpuscular Hemoglobin Concent 35 32-36 g/dL Red Cell Distribution Width 12.4 10.0-14.5 % Platelet Count 428 H 130-400 10^3/uL Mean Platelet Volume 10.0 9.0-12.2 fL Immature Granulocyte % (Auto) 0 % Neutrophils (%) (Auto) 59 42-75 % Lymphocytes (%) (Auto) 35 12-44 % Monocytes (%) (Auto) 5 0-12 % Eosinophils (%) (Auto) 1 0-10 % Basophils (%) (Auto) 0 0-10 % Neutrophils # (Auto) 6.3 1.8-7.8 10^3/uL Lymphocytes # (Auto) 3.7 1.0-4.0 10^3/uL Monocytes # (Auto) 0.6 0.0-1.0 10^3/uL Eosinophils # (Auto) 0.1 0.0-0.3 10^3/uL Basophils # (Auto) 0.0 0.0-0.1 10^3/uL Immature Granulocyte # (Auto) 0.0 0.0-0.1 10^3/uL Prothrombin Time 12.7 12.2-14.7 SEC INR Comment 0.9 0.8-1.4 Activated Partial Thromboplast Time 31 24-35 SEC Sodium Level 134 L 135-145 MMOL/L Potassium Level 4.1 3.6-5.0 MMOL/L Chloride Level 99 98-107 MMOL/L Carbon Dioxide Level 25 21-32 MMOL/L Anion Gap 10 5-14 MMOL/L Blood Urea Nitrogen 8 7-18 MG/DL Creatinine 0.71 0.60-1.30 MG/DL Estimat Glomerular Filtration Rate 102 BUN/Creatinine Ratio 11 Glucose Level 365 H 70-105 MG/DL Calcium Level 10.3 H 8.5-10.1 MG/DL Corrected Calcium 10.3 H 8.5-10.1 MG/DL Magnesium Level 1.3 L 1.6-2.4 MG/DL Total Bilirubin 0.3 0.1-1.0 MG/DL Aspartate Amino Transf (AST/SGOT) 13 5-34 U/L Alanine Aminotransferase (ALT/SGPT) 17 0-55 U/L Alkaline Phosphatase 133 40-136 U/L Myoglobin 18.8 10.0-92.0 NG/ML Troponin I < 0.028 <0.028 NG/ML Total Protein 7.0 6.4-8.2 GM/DL Albumin 4.0 3.2-4.5 GM/DL My Orders Orders - TALYA FORDE MD Ekg Tracing (03/04/22 07:00) Cbc With Automated Diff (03/04/22 07:04) Magnesium (03/04/22 07:04) Chest 1 View, Ap/Pa Only (03/04/22 07:04) Comprehensive Metabolic Panel (03/04/22 07:04) Myoglobin Serum (03/04/22 07:04) Protime With Inr (03/04/22 07:04) Partial Thromboplastin Time (03/04/22 07:04) O2 (03/04/22 07:04) Monitor-Rhythm Ecg Trace Only (03/04/22 07:04) Ed Iv/Invasive Line Start (03/04/22 07:04) Troponin I Johan (03/04/22 07:04) Nitroglycerin 0.4 Mg Btl 25's (Nitrostat (03/04/22 07:15) Aspirin Chewable Tablet (Baby Aspirin Ch (03/04/22 07:15) Ekg Tracing (03/04/22 07:13) Magnesium 1 Gm/100 Ml Ivpb (Magnesium Andrews (03/04/22 08:00) Morphine Injection (Morphine Injection (03/04/22 08:07) Insulin (Regular) Human (Novolin R (Per (03/04/22 08:30) Heparin Drip 92153 Unit/500ml (Heparin (03/04/22 09:15) Heparin (Bolus Per Protocol) (Heparin (B (03/04/22 09:15) Medications Given in ED Current Medications Medications Dose Ordered Sig/Sy Route Start Time Stop Time Status Last Admin Dose Admin Aspirin 324 mg ONCE ONCE PO 03/04/22 07:15 03/04/22 07:16 DC 03/04/22 07:18 324 MG Heparin Sodium (Porcine) HEPARIN FULL PROTOC... ONCE ONCE IV 03/04/22 09:15 03/04/22 09:16 DC 03/04/22 09:51 5,000 UNIT Heparin Sodium/ Dextrose 500 ml @ 0 mls/hr Q0M ONCE IV 03/04/22 09:15 03/04/22 09:16 DC 03/04/22 09:59 24 MLS/HR Insulin Human Regular 3 unit ONCE ONCE SC 03/04/22 08:30 03/04/22 08:31 DC 03/04/22 08:33 3 UNIT Magnesium Sulfate/ Dextrose 100 ml @ 100 mls/hr ONCE ONCE IV 03/04/22 08:00 03/04/22 08:59 DC 03/04/22 08:23 100 MLS/HR Nitroglycerin 0.4 mg UD PRN SL 03/04/22 07:15 03/04/22 07:38 DC 03/04/22 07:38 0.4 MG Vital Signs/I&O 03/04/22 03/04/22 03/04/22 07:03 07:41 11:04 Temp 35.5 35.5 Pulse 109 96 Resp 20 18 B/P (MAP) 159/73 (101) 123/72 Pulse Ox 97 96 98 O2 Delivery Room Air Nasal Cannula Nasal Cannula O2 Flow Rate 2.00 2.00 2.00 Blood Pressure Mean: 101 Progress Progress Note #1: Time: 07:50 Progress Note Recent angiography report reviewed. See report below: NAME: JAMAL [facility]ENIOR [facility] REC#: [id number] : 1970 ADMIT DATE: 02/12/22 PHYSICIAN: TA MARK JR, MD PROCEDURE REPORT CARDIAC CATHETERIZATION DATE OF PROCEDURE: 02/13/2022 INDICATION: Non-ST elevation myocardial infarction. HISTORY: The patient is a 51 year old female with no previously known history of coronary artery disease but with multiple cardiac risk factors who presented to the hospital with approximately a 1 day history of chest pain. Her initial troponin level was undetectable over the course of the past 24 hours, her troponin levels became positive and then started to fall which is consistent with an acute myocardial infarction. She had no evidence of ST elevation on her electrocardiogram. Because of the non-ST elevation myocardial infarction, she i s now referred for further evaluation with a cardiac catheterization. Given her current clinical status, she is considered moderately frail. She has no history of heart failure. PROCEDURES PERFORMED: 1. Left heart catheterization with hemodynamic measurements. 2. Diagnostic false pass coronary angiography. PROCEDURE DESCRIPTION: After informed consent and in the fasting state, left heart catheterization was performed through the right radial artery utilizing a 6 Filipino system by percutaneous approach. A 5 Filipino JR4 and a 5 Filipino JL 3.5 catheter were utilized for the procedure. All catheters were exchanged over a guidewire. Following the procedure, a vascular band was applied to the radial artery access site and the sheath was removed with good hemostasis. RESULTS: HEMODYNAMICS: The aortic pressure was 139/72 mmHg. The left ventricular pressure was 139/0 mmHg with a left ventricular end-diastolic pressure of 8 mmHg. There was no significant pressure gradient upon pullback across aortic valve. CORONARY ANGIOGRAPHY: Left main coronary artery: Free of significant disease. Left anterior descending coronary artery: There was a 70% stenosis in the midsegment between the first septal shelf filler and first large diagonal branch with JACKY-3 flow. There was another 70% stenosis in the distal segment with JACKY-3 flow. Left circumflex coronary artery: Dominant and there was an eccentric 50% stenosis proximally that had the appearance of the healed plaque rupture. There was a 70% stenosis in the midsegment which formed a bifurcation lesion with the first large obtuse marginal branch with JACKY-2 flow and a Caldera classification of 0, 1, 0. There was another 70% stenosis in the proximal segment of the left posterolateral branch with JACKY-2 flow. This formed a bifurcation lesion with the left circumflex coronary artery proper and the left posterior descending coronary artery branch with a Caldera classification of 0, 0, 1. Right coronary artery: Small, nondominant and there was a 99% stenosis proximally with JACKY-1 flow. I suspect this was the ischemia related vessel for the acute myocardial infarction. This was approximately a 2 mm vessel. IMPRESSION: 1. Normal left heart pressures. 2. Severe false pass three-vessel coronary artery disease in a left dominant s ystem. The left main coronary artery and anatomic proximal left anterior descending coronary artery appeared to be spared but functionally, the lesion in the mid left anterior descending coronary artery provides anatomic territory of the proximal left anterior descending coronary artery. 3. The patient is known to have normal left ventricular systolic function with an estimated ejection fraction of 60-65% by echocardiogram that was performed on 02/12/2022. 4. I will consider the referring the patient for coronary artery bypass surgery. This could potentially be done as an outpatient. Certain portions of this document may have been dictated utilizing voice recognition technology. Inherent to this technology, typographical and grammatical errors may exist. As much as I am diligent to identify and correct these mistakes, some errors may remain in the document. TA MARK JR, MD Feb 13, 2022 15:16 [id number] <Created by TA MARK JR, MD> <Electronically signed by TA MARK JR, MD> 02/13/22 1535 Progress Note #2: Time: 07:51 Progress Note Patient was promptly interviewed and examined. She was given aspirin 243 mg to add to the 81 mg she took this morning. Nitroglycerin x2 provided minimal improvement in pain. Initial EKG demonstrated ST changes from prior but was not diagnostic for STEMI. Repeat EKG demonstrated improvement in these changes and was closer to baseline. Dr. Mark has been consulted by phone and will be provided with updates. Progress Note #3: Time: 08:30 Progress Note Patient reports improvement in pain after 3 doses of nitroglycerin and reports pain presently as 5/10. Magnesium is being replaced by IV route. Residual pain is being treated with morphine 4 mg IV. Case was reviewed with Dr. Mark who requested admission to his service. Prior to admission patient is receiving insulin 3 units subcutaneously. She normally takes Victoza which she has not taken yet today. Patient is agreeable to admission. She is understandably frightened due to her known coronary artery disease and strong family history of poor cardiovascular outcomes. We discussed CODE STATUS, and she would like to remain full code. She would like her son, Seb Clayton, to be her primary contact and decision maker should she be incapacitated. His phone number is [phone]. She would like her brother, Eliseo Duff, to be the secondary contact and decision maker if Seb is not available. His number is [phone]. Progress Note #4: Time: 09:[address] Mark presented to the emergency room to evaluate the patient. He was able to make arrangements with Dr. Spears, CV surgeon at [facility] to facilitate transfer for prompt evaluation for CABG. Patient was agreeable to transfer, and arrangements are being made. Dr. Mark recommended discontinuing nitroglycerin and starting heparin bolus and drip. EKG #1: EKG Time: 07:07 Rate: 114 Rhythm: S.Tach Comment Sinus tachycardia with no diagnostic ST elevation. Borderline ST changes in V3 and V4. ST depression in multiple leads including I and aVL. No abnormal intervals or axis deviation. PVC noted. This is a borderline EKG that represents dynamic change from prior and will be followed with serial EKG(s). EKG #2: EKG Time: 07:32 Rate: 115 Rhythm: S.Tach Comment Sinus tachycardia with no diagnostic ST elevation or depression. ST changes noted on prior EKG have improved. This EKG is closer to baseline. No abnormal intervals or axis deviation. This EKG was obtained after nitroglycerin x2. Diagnostic Imaging Diagonstic Imaging: Xray Plain Films/CT/US/NM/MRI: chest Comments NAME: JAMAL SENIOR MED REC#: [id number] PT STATUS: REG ER : 1970 PHYSICIAN: TALYA FORDE MD ADMIT DATE: 03/04/22/ER Draft Date of Exam:03/04/22 CHEST 1 VIEW, AP/PA ONLY INDICATION: Chest pain Single AP view of the chest is obtained with comparison made to study of 02/12/2022 FINDINGS: Heart size and pulmonary vascularity are within normal limits, and the lungs are clear, bilaterally. IMPRESSION: Unremarkable chest. Dictated on workstation # [id number] Dict: 03/04/22 0736 Trans: 03/04/22 0737 [id number] [id number] Interpreted by: RENETTA NIETO MD Departure Impression Primary Impression: Coronary artery disease with unstable angina pectoris Qualified Codes: I25.110 - Atherosclerotic heart disease of false pass coronary artery with unstable angina pectoris Additional Impressions: Chest pain Qualified Codes: R07.9 - Chest pain, unspecified Hypomagnesemia Disposition: XFER SHT-TRM HOSP Condition: Improved Admissions Decision to Admit/Date: Mar 04, 2022 Time/Decision to Admit Time: 08:15 Transfer Transfer Reason: Exceeds level of care Time Spoke to Accepting Phy: 09:15 Transfer Progress Notes Transfer arrangements were made between Dr. Ta Mark, billing services manager at [facility] and Dr. Urbano Spears, CV surgeon at [facility] in [place]. Transfer Time: 11:03 Transfer Facility: [facility] Method of Transfer: EMS Departure-Patient Inst. Referrals: [facility] (PCP/Family) Primary Care Physician Copy Copies To 1: [facility] Copies To 2: TA MARK JR, MD BRUEGGEMANN, JOSHUA T MD Mar 04, 2022 07:48
[2022-03-04] MEDS ORDERED: MAGNESIUM 1 GM/100 ML IVPB 100 ML IV ONE (08:00)
[2022-03-04] MEDS ORDERED: morphine INJ 10 MG/ML 1ML (SYR OR VIAL) IVP STA (08:07)
[2022-03-04] MEDS ORDERED: inSUlin (REGULAR) HUMAN 1 UNIT/0.01 ML (CHARGE PER UNIT) SC ONE (08:30)
--- NOTE | 2022-03-04 09:11 | Consultation-Cardiology ---
HPI-Cardiology Cardiology Consultation: Date of Consultation 03/04/22 Date of Admission 03/04/22 Attending Physician [place] Admitting Physician Admitting Physician: Attending Physician: Consulting Physician TA BUENROSTRO JR, MD HPI: Time Seen by a Provider: 09:11 Chief Complaint: REASON FOR CONSULTATION: Chest pain. I had the pleasure of seeing Deidre in the emergency room at in [place], [place] today. She is known to me from a previous hospitalization. She has a known history of coronary artery disease with a non-ST elevation myocardial infarction on February 12, 2022. At that time she underwent a cardiac catheterization that showed severe coronary artery disease. She was stabilized and placed on guideline directed medical therapy and I had her see Deangelo Spears MD at [facility] for consideration of coronary bypass surgery. She saw him just last week and arrangements were being made to schedule surgery. However, last evening she was sitting at home and developed substernal chest tightness. This felt similar to her previous hospitalization but not as severe. She denies associated symptoms or radiation. She took 1 sublingual nitroglycerin and the chest discomfort resolved. She slept well overnight but this morning was making breakfast and again developed substernal chest tightness without radiation or associated symptoms. She had a family member bring her to the emergency room. Her initial electrocardiogram showed ST elevation isolated to lead III. She was given 3 sublingual nitroglycerin and aspirin and her chest discomfort subsided. A follow-up electrocardiogram showed resolution of the ST elevation. She denies dyspnea, paroxysmal nocturnal dyspnea, orthopnea, palpitations, lightheadedness, syncope, or ankle edema. She has been having some issues at home getting her blood sugar under good control. Because of the chest pain, a cardiology consultation was requested. Certain portions of this document may have been dictated utilizing voice recognition technology. Inherent to this technology, typographical and g rammatical errors may exist. As much as I am diligent to identify and correct these mistakes, some errors may remain in the document. Review of Systems-Cardiology Review of Systems Other comments Review of 10 organ systems is as per the history of present illness, otherwise negative. [id number] Hx Patient Social History Smoking Status: Former Smoker Have you traveled recently?: No Alcohol Use?: No Tobacco type used: Cigarettes Past Medical History PMH As described under Assessment. Family Medical History Family Medical History: Her father of a myocardial infarction at the age of 56. Family History: Premature coronary artery disease Allergies and Home Medications Allergies Coded Allergies: NKANo Known Allergies (Verified Allergy, Unknown, 02/12/22) Patient Home Medication List Home Medication List Reviewed: Yes Aspirin (Aspirin EC) 81 Mg Tablet.dr, 81 MG PO DAILY Prescribed by: TA BUENROSTRO JR, MD on 02/14/22825 Calcium Carbonate (Calcium) 600 Mg Calcium (1500 Mg) Tablet, 600 MG PO DAILY, (Reported) Entered as Reported by: JUMANA KLINE on 02/12/22 153 Carvedilol (Carvedilol) 3.125 Mg Tablet, 3.125 MG PO BID Prescribed by: TA BUENROSTRO JR, MD on 02/14/22825 Cranberry (Cranberry) 400 Mg Capsule, 400 MG PO DAILY, (Reported) Entered as Reported by: JUMANA KLINE on 02/12/22 153 Metformin HCl (Metformin HCl) 1,000 Mg Tablet, 1,000 MG PO BID Prescribed by: JANNY OLSON on 02/14/22 101 Multivitamin (Multivitamin) 1 Each Tablet, 1 EACH PO DAILY, (Reported) Entered as Reported by: JUMANA KLINE on 02/12/22 153 Nicotine (Nicotine Patch) 21 Mg/24 Hour Patch.td24, 21 MG TD DAILY Prescribed by: JANNY OLSON on 02/14/22 1011 Nitroglycerin (Nitroglycerin) 0.4 Mg Tab.subl, 0.4 MG SL NEEDED PRN for CHEST PAIN (ANGINA) Prescribed by: TA BUENROSTRO JR, MD on 02/14/22825 Pantoprazole Sodium (Pantoprazole Sodium) 40 Mg Tablet.dr, 40 MG PO DAILY Prescribed by: TA BUENROSTRO JR, MD on 02/14/22825 Rosuvastatin Calcium (Rosuvastatin Calcium) 20 Mg Tablet, 20 MG PO HS Prescribed by: TA BUENROSTRO JR, MD on 02/14/22825 Exam Vital Signs Vital Signs Date Time Temp Pulse Resp B/P (MAP) Pulse Ox O2 Delivery O2 Flow Rate FiO2 03/04/22 07:41 96 Nasal Cannula 2.00 03/04/22 07:03 35.5 109 20 159/73 (101) Physical Exam General: Alert. No acute distress. Well nourished and appears stated age. Eye: Extraocular movements are intact. Conjunctivae are clear. There are no xanthelasma. HENT: Normocephalic. Atraumatic. Carotid pulsations 2/2 without bruits. She has poor dentition. Neck: Jugular venous pressure does not appear elevated. No thyromegaly appreciated. Respiratory: Lungs are clear to auscultation. Respirations are non-labored. Breath sounds are equal. Symmetrical chest wall expansion. Cardiovascular: Normal rate. Regular rhythm. No murmur. No gallop. Point of maximal impulse is not appear displaced. Good pulses equal in all extremities. No edema. Gastrointestinal: Soft. Normal bowel sounds. Skin: Skin turgor is normal. There is no pallor. Musculoskeletal: No kyphosis or scoliosis appreciated. Neurologic: Alert and oriented to person, place, time. Cranial nerves 3-12 appear grossly intact. The patient has good motor tone strength in the upper and lower extremities bilaterally. Psychiatric: Cooperative. Appropriate mood & affect. Labs Laboratory Tests Test 03/04/22 07:12 Range/Units White Blood Count 10.8 4.3-11.0 10^3/uL Red Blood Count 4.85 3.80-5.11 10^6/uL Hemoglobin 14.1 11.5-16.0 g/dL Hematocrit 40 35-52 % Mean Corpuscular Volume 83 80-99 fL Mean Corpuscular Hemoglobin 29 25-34 pg Mean Corpuscular Hemoglobin Concent 35 32-36 g/dL Red Cell Distribution Width 12.4 10.0-14.5 % Platelet Count 428 H 130-400 10^3/uL Mean Platelet Volume 10.0 9.0-12.2 fL Immature Granulocyte % (Auto) 0 % Neutrophils (%) (Auto) 59 42-75 % Lymphocytes (%) (Auto) 35 12-44 % Monocytes (%) (Auto) 5 0-12 % Eosinophils (%) (Auto) 1 0-10 % Basophils (%) (Auto) 0 0-10 % Neutrophils # (Auto) 6.3 1.8-7.8 10^3/uL Lymphocytes # (Auto) 3.7 1.0-4.0 10^3/uL Monocytes # (Auto) 0.6 0.0-1.0 10^3/uL Eosinophils # (Auto) 0.1 0.0-0.3 10^3/uL Basophils # (Auto) 0.0 0.0-0.1 10^3/uL Immature Granulocyte # (Auto) 0.0 0.0-0.1 10^3/uL Prothrombin Time 12.7 12.2-14.7 SEC INR Comment 0.9 0.8-1.4 Activated Partial Thromboplast Time 31 24-35 SEC Sodium Level 134 L 135-145 MMOL/L Potassium Level 4.1 3.6-5.0 MMOL/L Chloride Level 99 98-107 MMOL/L Carbon Dioxide Level 25 21-32 MMOL/L Anion Gap 10 5-14 MMOL/L Blood Urea Nitrogen 8 7-18 MG/DL Creatinine 0.71 0.60-1.30 MG/DL Estimat Glomerular Filtration Rate 102 BUN/Creatinine Ratio 11 Glucose Level 365 H 70-105 MG/DL Calcium Level 10.3 H 8.5-10.1 MG/DL Corrected Calcium 10.3 H 8.5-10.1 MG/DL Magnesium Level 1.3 L 1.6-2.4 MG/DL Total Bilirubin 0.3 0.1-1.0 MG/DL Aspartate Amino Transf (AST/SGOT) 13 5-34 U/L Alanine Aminotransferase (ALT/SGPT) 17 0-55 U/L Alkaline Phosphatase 133 40-136 U/L Myoglobin 18.8 10.0-92.0 NG/ML Troponin I < 0.028 <0.028 NG/ML Total Protein 7.0 6.4-8.2 GM/DL Albumin 4.0 3.2-4.5 GM/DL Radiology CARDIAC CATHETERIZATION (02/13/2022): HEMODYNAMICS: The aortic pressure was 139/72 mmHg. The left ventricular pressure was 139/0 mmHg with a left ventricular end-diastolic pressure of 8 mmHg. There was no significant pressure gradient upon pullback across aortic valve. CORONARY ANGIOGRAPHY: Left main coronary artery: Free of significant disease. Left anterior descending coronary artery: There was a 70% stenosis in the midsegment between the first septal custodial manager and first large diagonal branch with JACKY-3 flow. There was another 70% stenosis in the distal segment with JACKY-3 flow. Left circumflex coronary artery: Dominant and there was an eccentric 50% stenosis proximally that had the appearance of the healed plaque rupture. There was a 70% stenosis in the midsegment which formed a bifurcation lesion with the first large obtuse marginal branch with JACKY-2 flow and a Caldera classification of 0, 1, 0. There was another 70% stenosis in the proximal segment of the left posterolateral branch with JACKY-2 flow. This formed a bifurcation lesion with the left circumflex coronary artery proper and the left posterior descending coronary artery branch with a Caldera classification of 0, 0, 1. Right coronary artery: Small, nondominant and there was a 99% stenosis proximally with JACKY-1 flow. I suspect this was the ischemia related vessel for the acute myocardial infarction. This was approximately a 2 mm vessel. IMPRESSION: 1. Normal left heart pressures. 2. Severe [place] three-vessel coronary artery disease in a left dominant system. The left main coronary artery and anatomic proximal left anterior descending coronary artery appeared to be spared but functionally, the lesion in the mid left anterior descending coronary artery provides anatomic territory of the proximal left anterior descending coronary artery. 3. The patient is known to have normal left ventricular systolic function with an estimated ejection fraction of 60-65% by echocardiogram that was performed on 02/12/2022. 4. I will consider the referring the patient for coronary artery bypass surgery. This could potentially be done as an outpatient. ECHOCARDIOGRAM (02/12/2022): 1. Normal left ventricular chamber size with moderate concentric hypertrophy. Normal left ventricular systolic function with an estimated ejection fraction of 60-65% with no regional wall motion abnormalities identified. 2. Doppler parameters are consistent with grade 1 diastolic dysfunction. 3. There is mild aortic valve sclerosis. 4. The estimated pulmonary artery systolic pressure is 25 mmHg assuming a right atrial pressure of 5 mmHg. ECG Impression ECG Comment Her initial electrocardiogram showed sinus rhythm with inferior ST elevation isolated to lead III. A follow-up electrocardiogram when she was pain-free showed sinus rhythm with resolution of the ST elevation in lead III. Diagnosis/Problems Diagnosis/Problems (1) Coronary artery disease with unstable angina pectoris Assessment & Plan: She has known coronary artery disease with severe disease in a left dominant system. Now she has symptoms concerning for unstable angina and had dynamic changes on her electrocardiogram as noted above. She is now pain- free. I am concerned that she may be having a threatening inferior myocardial infarction. I recommend starting her on heparin infusion. I spoke to Dr. Spears who has agreed to accept the patient in transfer for consideration of urgent coronary artery bypass surgery. (2) Mixed hyperlipidemia Assessment & Plan: Continue intensive dose statin in light of the recent myocardial infarction. (3) Primary hypertension Assessment & Plan: Resume carvedilol. (4) History of non-ST elevation myocardial infarction (NSTEMI) Assessment & Plan: As above. (5) Cigarette smoker Status: Resolved Assessment & Plan: She quit smoking at the time of her previous hospitalization on February 12, 2022. I encouraged her to continue with her best efforts at cessation. Resolution Date/Time: 02/13/22 @ 09:17 (6) Type 2 diabetes mellitus with complication Assessment & Plan: She will likely benefit from an insulin infusion perioperatively. This can be coordinated at the accepting hospital. Problem Qualifiers (1) Coronary artery disease with unstable angina pectoris: Coronary Disease-Associated Artery/Lesion type: [place] artery [place] vs. transplanted heart: [place] heart Qualified Codes: I25.110 - Atherosclerotic heart disease of [place] tribe coronary artery with unstable angina pectoris TA BUENROSTRO JR, MD Mar 04, 2022 09:11
[2022-03-04] MEDS ORDERED: HEParin 1000 UNIT/ML (10ML VIAL) FOR BOLUS IV ONE (09:15)
[2022-03-04] MEDS ORDERED: HEParin DRIP 25000 UNIT/500ML 500 ML IV ONE (09:15)
[2022-03-04 11:04] VITALS: BP 123/72
== END 2022-03-04 11:03 | disposition short-term general hospital (02) ==
LOC: EDUNIT# 06:54 → ER 06:57
DX: I25.110 Atherosclerotic heart disease of native coronary artery with unstable angina pectoris (principal); E83.42 Hypomagnesemia; F17.210 Nicotine dependence, cigarettes, uncomplicated; E11.9 Type 2 diabetes mellitus without complications; Z79.4 Long term (current) use of insulin; Z98.61 Coronary angioplasty status; Z83.3 Family history of diabetes mellitus; Z82.49 Family history of ischemic heart disease and other diseases of the circulatory system
CPT/HCPCS: 36415; 71045; 80053; 83735; 83874; 84484; 85025; 85610; 85730; 93005; 93041

== ENCOUNTER 2022-05-19 09:48 | Emergency (ER) | payer SELFPAY ==
[~2022-05-19] VITALS: Ht 167 cm; Wt 70.0 kg
[2022-05-19 09:57] VITALS: BP 188/95
[2022-05-19] MEDS ORDERED: diphenhydrAMINE 50 MG/ML INJ (BENADRYL) IM ONE (10:45)
[2022-05-19] MEDS ORDERED: PROCHLORPERAZINE 10 MG TAB (COMPAZINE) PO ONE (10:45)
[2022-05-19] MEDS ORDERED: KETOROLAC 60 MG/2 ML VIAL IM ONE (10:45)
--- NOTE | 2022-05-19 10:53 | ED Headache ---
General Chief Complaint: Lower Extremity Stated Complaint: LEG PAIN, HEADACHE, HANDS NUMB Nursing Triage Note: pt ambulatory to ER with c/o right lower leg pain. Patient used an ice pack on leg at home. The pain has migrated to her head and she now has numbness in both her hands. patient denies any injuries to the leg. Source: patient, family Exam Limitations: no limitations History of Present Illness Date Seen by Provider: May 19, 2022 Time Seen by Provider: 09:47 Initial Comments 51-year-old female presents emergency department today for headache which is typ ical for her normal migraine headache. She does have some numb hands as well which sometimes does happen with her headaches. Described as dull throbbing frontal without radiation. Aggravated by light and sound, relieved by rest. It has been present for about 2 days now. She typically takes Tylenol but it has not helped at this time. She further describes some right leg pain. This has been going on for about 2 or 3 months off and on. No known injury. No swelling. No recent long distance travel, unilateral lower extremity pain or swelling, surgeries she is not on control or estrogen therapy. No history of DVT, PE. No chest pain or shortness of breath. Allergies and Home Medications Allergies Coded Allergies: NKANo Known Allergies (Verified Allergy, Unknown, 02/12/22) Patient Home Medication List Home Medication List Reviewed: Yes Aspirin (Aspirin EC) 81 Mg Tablet.dr, 81 MG PO DAILY Prescribed by: TA BUENROSTRO JR, MD on 02/14/22 08 Calcium Carbonate (Calcium) 600 Mg Calcium (1500 Mg) Tablet, 600 MG PO DAILY, (Reported) Entered as Reported by: JUMANA KLINE on 02/12/22 1536 Carvedilol (Carvedilol) 3.125 Mg Tablet, 3.125 MG PO BID Prescribed by: TA BUENROSTRO JR, MD on 02/14/22 0826 Cranberry (Cranberry) 400 Mg Capsule, 400 MG PO DAILY, (Reported) Entered as Reported by: JUMANA KLINE on 02/12/22 1536 Metformin HCl (Metformin HCl) 1,000 Mg Tablet, 1,000 MG PO BID Prescribed by: JANNY OLSON on 02/14/22 1011 Multivitamin (Multivitamin) 1 Each Tablet, 1 EACH PO DAILY, (Reported) Entered as Reported by: JUMANA KILNE on 02/12/22 1536 Nicotine (Nicotine Patch) 21 Mg/24 Hour Patch.td24, 21 MG TD DAILY Prescribed by: JANNY OLSON on 02/14/22 1011 Nitroglycerin (Nitroglycerin) 0.4 Mg Tab.subl, 0.4 MG SL NEEDED PRN for CHEST PAIN (ANGINA) Prescribed by: TA BUENROSTRO JR, MD on 02/14/22825 Pantoprazole Sodium (Pantoprazole Sodium) 40 Mg Tablet.dr, 40 MG PO DAILY Prescribed by: TA BUENROSTRO JR, MD on 02/14/22825 Rosuvastatin Calcium (Rosuvastatin Calcium) 20 Mg Tablet, 20 MG PO HS Prescribed by: TA BUENROSTRO JR, MD on 02/14/22825 Review of Systems Review of Systems Constitutional: no symptoms reported Eyes: No Symptoms Reported Ears, Nose, Mouth, Throat: no symptoms reported Respiratory: no symptoms reported Cardiovascular: no symptoms reported Gastrointestinal: no symptoms reported Genitourinary: no symptoms reported Musculoskeletal: muscle pain Skin: no symptoms reported Psychiatric/Neurological: Headache Past Itxwubt-Xggfoq-Nvamgo Hx Patient Social History Tobacco Use?: No Substance use?: No Alcohol Use?: No Immunizations Up To Date First/Initial COVID19 Vaccinat: 2020 Second COVID19 Vaccination Manas: jan 24 Third COVID19 Vaccination Date: jan 24 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: [employer] Past Medical History Surgery/Hospitalization HX: diabetes, insulin dependent 3 CESEAREAN, GALLBLADDER, UMBILCAL HERNIA REPAIR, AMI Surgeries: Yes Abdominal, Cardiac, Section, Gallbladder Respiratory: No Cardiac: Yes Coronary Artery Disease, Hypertension Neurological: No Reproductive Disorders: No Genitourinary: No Gastrointestinal: No Musculoskeletal: No Endocrine: Yes Diabetes, Insulin dep HEENT: No Cancer: No Psychosocial: No Family Medical History Reviewed Nursing Family Hx Premature coronary artery disease Heart Disease, Diabetes Physical Exam Vital Signs Vital Signs - First Documented 05/19/22 09:57 Temp 36.2 Pulse 89 Resp 20 B/P (MAP) 188/95 (126) Pulse Ox 98 O2 Delivery Room Air Capillary Refill : Less Than 3 Seconds Height, Weight, BMI Height: '" Weight: lbs. oz. kg; 25.00 BMI Method: General Appearance: WD/WN, no apparent distress HEENT: PERRL/EOMI, normal ENT inspection, TMs normal, pharynx normal Neck: non-tender, full range of motion, supple, normal inspection Cardiovascular: regular rate, rhythm, no edema, no gallop, no JVD, no murmur Respiratory: chest non-tender, lungs clear, normal breath sounds, no respiratory distress, no accessory muscle use Gastrointestinal: normal bowel sounds, non tender, soft, no organomegaly Back: normal inspection, no CVA tenderness, no vertebral tenderness Extremities: normal range of motion, normal inspection, no pedal edema, no calf tenderness, normal capillary refill, other (Mild tenderness palpation pretibial region along the bony prominence of the tibia, pack anteriorly. No swelling, deformity. Neurovascular motor and sensory intact.) Psychiatric: alert, oriented x 3 Skin: normal color, warm/dry Progress/Results/Core Measures Results/Orders My Orders Orders - ENEDINARUTHY DO Diphenhydramine Injection (Benadryl Inje (05/19/22 10:45) Ketorolac Injection (Toradol Injection) (05/19/22 10:45) Prochlorperazine Tablet (Compazine Table (05/19/22 10:45) Medications Given in ED Current Medications Medications Dose Ordered Sig/Sy Route Start Time Stop Time Status Last Admin Dose Admin Diphenhydramine HCl 50 mg ONCE ONCE IM 05/19/22 10:45 05/19/22 10:46 DC 05/19/22 11:10 50 MG Ketorolac Tromethamine 15 mg ONCE ONCE IM 05/19/22 10:45 05/19/22 10:46 DC 05/19/22 11:09 15 MG Prochlorperazine Maleate 10 mg ONCE ONCE PO 05/19/22 10:45 05/19/22 10:46 DC 05/19/22 11:10 10 MG Vital Signs/I&O 05/19/22 09:57 Temp 36.2 Pulse 89 Resp 20 B/P (MAP) 188/95 (126) Pulse Ox 98 O2 Delivery Room Air Blood Pressure Mean: 126 Departure Communication (Admissions) Patient is hemodynamically stable. Headache has resolved with the provided therapies. Leg pain appears to be likely shinsplints. There is no bony deformity. She is neurovascular and sensory intact. There is no posterior leg pain calf tenderness, no evidence for DVT or arterial occlusion. Leg symptoms related to the headache and is exactly the same as previous migraine headaches she is discharged in stable condition Impression Primary Impression: Migraine headache Qualified Codes: G43.909 - Migraine, unspecified, not intractable, without status migrainosus Additional Impression: Right leg pain Disposition: 01 HOME, SELF-CARE Condition: Stable Departure-Patient Inst. Referrals: [facility] (PCP/Family) Primary Care Physician Add. Discharge Instructions: You are seen in the emergency department for migraine headache as well as some right leg pain. Regarding right leg pain I do not think this is secondary to a clot or blockage. It appears to be musculoskeletal in nature. Use over-the-co unter medications as needed. I provided you medicine to help with your headache and your symptoms have seemingly improved. Increase your fluids at home, rest. Follow with your primary doctor if your pain persist. Return to the emergency department for any severe concerns. All discharge instructions reviewed with patient and/or family. Voiced understanding. RUTHY MCCONNELL DO May 19, 2022 10:52
== END 2022-05-19 12:15 | disposition home or self-care (01) ==
LOC: EDUNIT# 09:48 → ER 09:50
DX: G43.909 Migraine, unspecified, not intractable, without status migrainosus (principal); M79.604 Pain in right leg; E11.9 Type 2 diabetes mellitus without complications; Z79.4 Long term (current) use of insulin
CPT/HCPCS: 99284

== ENCOUNTER 2022-07-24 13:38 | Emergency (ER) | payer SELFPAY ==
[~2022-07-24] VITALS: Ht 167 cm; Wt 81.6 kg
[2022-07-24] MEDS ORDERED: diphenhydrAMINE 50 MG/ML INJ (BENADRYL) IV STA (14:11)
[2022-07-24] MEDS ORDERED: KETOROLAC 30 MG/ML VIAL IVP STA (14:11)
[2022-07-24] MEDS ORDERED: METOCLOPRAMIDE INJ 10 MG/2 ML (REGLAN) IVP STA (14:11)
[2022-07-24] MEDS ORDERED: NS IV 1000 ML 1,000 ML IV STA (14:11)
--- NOTE | 2022-07-24 14:11 | ED Headache ---
General Chief Complaint: Head/Cervical Problems Stated Complaint: HEADACHE | NUMBNESS | VOMITING Nursing Triage Note: pt presents to ed via pov from home with complaints of flores, vomiting, nausea, dizziness starting around 1200 today. pt reports she has hx of migraines and typically drinks an energy drink to help them but has been trying not to drink those due to her cardiac hx. History of Present Illness Date Seen by Provider: Jul 24, 2022 Time Seen by Provider: 14:11 Initial Comments 51-year-old male presents with migraine. She is complaining of a headache, some nausea vomiting that started around 12 today. This is typical of a migraine that she normally gets. She says only different with her hand little bit numb but that is resolved. She has had a heart attack in the past and was just concerned and want to make sure that was not related to any cardiac problems. She denies any chest pain, shortness of breath, diaphoresis. Allergies and Home Medications Allergies Coded Allergies: Ashtyn Known Allergies (Verified Allergy, Unknown, 02/12/22) Patient Home Medication List Home Medication List Reviewed: Yes Aspirin (Aspirin EC) 81 Mg Tablet.dr, 81 MG PO DAILY Prescribed by: TA BUENROSTRO JR, MD on 02/14/22 0826 Calcium Carbonate (Calcium) 600 Mg Calcium (1500 Mg) Tablet, 600 MG PO DAILY, (Reported) Entered as Reported by: JUMANA KLINE on 02/12/22 153 Carvedilol (Carvedilol) 3.125 Mg Tablet, 3.125 MG PO BID Prescribed by: TA BUENROSTRO JR, MD on 02/14/22 0826 Cranberry (Cranberry) 400 Mg Capsule, 400 MG PO DAILY, (Reported) Entered as Reported by: JUMANA KLINE on 02/12/22 153 Metformin HCl (Metformin HCl) 1,000 Mg Tablet, 1,000 MG PO BID Prescribed by: JANNY OLSON on 02/14/22 1011 Multivitamin (Multivitamin) 1 Each Tablet, 1 EACH PO DAILY, (Reported) Entered as Reported by: JUMANA KLINE on 02/12/22 153 Nicotine (Nicotine Patch) 21 Mg/24 Hour Patch.td24, 21 MG TD DAILY Prescribed by: JANNY OLSON on 02/14/22 1011 Nitroglycerin (Nitroglycerin) 0.4 Mg Tab.subl, 0.4 MG SL NEEDED PRN for CHEST PAIN (ANGINA) Prescribed by: TA BUENROSTRO JR, MD on 02/14/22825 Pantoprazole Sodium (Pantoprazole Sodium) 40 Mg Tablet.dr, 40 MG PO DAILY Prescribed by: TA BUENROSTRO JR, MD on 02/14/22825 Rosuvastatin Calcium (Rosuvastatin Calcium) 20 Mg Tablet, 20 MG PO HS Prescribed by: TA BUENROSTRO JR, MD on 02/14/22825 Review of Systems Review of Systems Constitutional: No chills, No fever Eyes: Photophobia Respiratory: No cough, No short of breath Cardiovascular: No chest pain, No palpitations Gastrointestinal: No abdominal pain; nausea, vomiting Musculoskeletal: no symptoms reported Skin: no symptoms reported Psychiatric/Neurological: See HPI, Headache Past [id number]-[id number]-[id number] Hx Patient Social History Tobacco Use?: No Smoking Status: Former Smoker Substance use?: No Alcohol Use?: No Pt feels they are or have been: No Immunizations Up To Date First/Initial COVID19 Vaccinat: 2020 Second COVID19 Vaccination Manas: jan 24 Third COVID19 Vaccination Date: jan 24 Past Medical History Surgery/Hospitalization HX: diabetes, insulin dependent 3 CESEAREAN, GALLBLADDER, UMBILCAL HERNIA REPAIR, AMI, cagb Surgeries: Yes Abdominal, Cardiac, Section, Gallbladder Respiratory: No Cardiac: Yes Coronary Artery Disease, Hypertension Neurological: No Reproductive Disorders: No Genitourinary: No Gastrointestinal: No Musculoskeletal: No Endocrine: Yes Diabetes, Insulin dep HEENT: No Cancer: No Psychosocial: No Family Medical History Premature coronary artery disease Heart Disease, Diabetes Physical Exam Vital Signs Vital Signs - First Documented 07/24/22 14:05 Temp 36.5 Pulse 87 Resp 18 B/P (MAP) 189/101 (130) Pulse Ox 96 Capillary Refill : Less Than 3 Seconds Height, Weight, BMI Height: '" Weight: lbs. oz. kg; 29.00 BMI Method: General Appearance: WD/WN, no apparent distress Neck: full range of motion, supple Cardiovascular: normal peripheral pulses, regular rate, rhythm Respiratory: lungs clear, normal breath sounds Gastrointestinal: non tender, soft Extremities: normal range of motion, non-tender Psychiatric: alert Crainal Nerves: normal hearing, normal speech Coordination/Gait: normal gait Motor/Sensory: no motor deficit, no sensory deficit Skin: normal color, warm/dry Progress/Results/Core Measures Results/Orders Lab Results Laboratory Tests Test 07/24/22 14:15 Range/Units White Blood Count 8.7 4.3-11.0 10^3/uL Red Blood Count 5.18 H 3.80-5.11 10^6/uL Hemoglobin 13.3 11.5-16.0 g/dL Hematocrit 40 35-52 % Mean Corpuscular Volume 77 L 80-99 fL Mean Corpuscular Hemoglobin 26 25-34 pg Mean Corpuscular Hemoglobin Concent 33 32-36 g/dL Red Cell Distribution Width 13.6 10.0-14.5 % Platelet Count 293 130-400 10^3/uL Mean Platelet Volume 10.2 9.0-12.2 fL Immature Granulocyte % (Auto) 0 % Neutrophils (%) (Auto) 68 42-75 % Lymphocytes (%) (Auto) 27 12-44 % Monocytes (%) (Auto) 4 0-12 % Eosinophils (%) (Auto) 1 0-10 % Basophils (%) (Auto) 0 0-10 % Neutrophils # (Auto) 5.9 1.8-7.8 10^3/uL Lymphocytes # (Auto) 2.3 1.0-4.0 10^3/uL Monocytes # (Auto) 0.4 0.0-1.0 10^3/uL Eosinophils # (Auto) 0.1 0.0-0.3 10^3/uL Basophils # (Auto) 0.0 0.0-0.1 10^3/uL Immature Granulocyte # (Auto) 0.0 0.0-0.1 10^3/uL Sodium Level 141 135-145 MMOL/L Potassium Level 4.1 3.6-5.0 MMOL/L Chloride Level 108 H 98-107 MMOL/L Carbon Dioxide Level 23 21-32 MMOL/L Anion Gap 10 5-14 MMOL/L Blood Urea Nitrogen 13 7-18 MG/DL Creatinine 0.71 0.60-1.30 MG/DL Estimat Glomerular Filtration Rate 102 BUN/Creatinine Ratio 18 Glucose Level 116 H 70-105 MG/DL Calcium Level 10.5 H 8.5-10.1 MG/DL Corrected Calcium 10.6 H 8.5-10.1 MG/DL Total Bilirubin 0.6 0.1-1.0 MG/DL Aspartate Amino Transf (AST/SGOT) 19 5-34 U/L Alanine Aminotransferase (ALT/SGPT) 21 0-55 U/L Alkaline Phosphatase 113 40-136 U/L Troponin I < 0.028 <0.028 NG/ML Total Protein 6.9 6.4-8.2 GM/DL Albumin 3.9 3.2-4.5 GM/DL My Orders Orders - CYNDI DE LEON Abhishek DO Cbc With Automated Diff (07/24/22 14:11) Comprehensive Metabolic Panel (07/24/22 14:11) Troponin I Johan (07/24/22 14:11) Metoclopramide Injection (Reglan Injecti (07/24/22 14:11) Ns Iv 1000 Ml (Sodium Chloride 0.9%) (07/24/22 14:11) Ketorolac Injection (Toradol Injection) (07/24/22 14:11) Diphenhydramine Injection (Benadryl Inje (07/24/22 14:11) Ekg Tracing (07/24/22 14:11) Monitor-Rhythm Ecg Trace Only (07/24/22 14:11) Vital Signs/I&O 07/24/22 14:05 Temp 36.5 Pulse 87 Resp 18 B/P (MAP) 189/101 (130) Pulse Ox 96 Blood Pressure Mean: 130 Progress Progress Note : Progress Note Patient's diagnostic studies were ordered reviewed and interpreted by me. Patient with no acute findings and negative troponin. Patient's EKG showed normal sinus rhythm, heart rate 33 SC 142 with some nonspecific changes. There is no acute ST elevation or changes noted. Patient is feeling much better fol lowing migraine cocktail. Her symptoms likely are just a result of her known migraine history. She is stable and discharged home. Patient's morbidity and mortality is moderately increased to her social determinants of health. Initial ECG Impression Date: Jul 24, 2022 Initial ECG Impression Time: 14:40 Initial ECG Rate: 83 Initial ECG Rhythm: Normal Sinus Initial ECG Intervals: Normal Initial ECG Impression: Nonspecific Changes Comment no acute changes Departure Impression Primary Impression: Migraine headache Qualified Codes: G43.009 - Migraine without aura, not intractable, without status migrainosus Disposition: HOME, SELF-CARE Condition: Stable Departure-Patient Inst. Referrals: JUMANA HOPSON DO (PCP/Family) Primary Care Physician Patient Instructions: Migraines (DC) Add. Discharge Instructions: Follow-up with your primary care provider as needed All discharge instructions reviewed with patient and/or family. Voiced understanding. CYNDI DE LEON DO Jul 24, 2022 14:11
[2022-07-24 14:23] LABS: BASOPHILS % (AUTO) 0 % (0-10); EOSINOPHILS # (AUTO) 0.1 10^3/uL (0.0-0.3); EOSINOPHILS % (AUTO) 1 % (0-10); HEMATOCRIT 40 % (35-52); HEMOGLOBIN 13.3 g/dL (11.5-16.0); LYMPHOCYTES # (AUTO) 2.3 10^3/uL (1.0-4.0); LYMPHOCYTES % (AUTO) 27 % (12-44); MEAN CORPUSCULAR HEMOGLOBIN 26 pg (25-34); MEAN CORPUSCULAR HGB CONC 33 g/dL (32-36); MEAN CORPUSCULAR VOLUME 77 fL (80-99); MEAN PLATELET VOLUME 10.2 fL (9.0-12.2); MONOCYTES # (AUTO) 0.4 10^3/uL (0.0-1.0); MONOCYTES % (AUTO) 4 % (0-12); NEUTROPHILS # (AUTO) 5.9 10^3/uL (1.8-7.8); NEUTROPHILS % (AUTO) 68 % (42-75); PLATELET COUNT 293 10^3/uL (130-400); WHITE BLOOD COUNT 8.7 10^3/uL (4.3-11.0)
[2022-07-24 14:34] LABS: ALBUMIN 3.9 GM/DL (3.2-4.5); CHLORIDE 108 MMOL/L (98-107); POTASSIUM 4.1 MMOL/L (3.6-5.0); SODIUM 141 MMOL/L (135-145)
[2022-07-24 14:35] LABS: CALCIUM 10.5 MG/DL (8.5-10.1)
[2022-07-24 14:36] LABS: GLUCOSE 116 MG/DL (70-105); TOTAL PROTEIN 6.9 GM/DL (6.4-8.2)
[2022-07-24 14:38] LABS: BILIRUBIN,TOTAL 0.6 MG/DL (0.1-1.0); CARBON DIOXIDE 23 MMOL/L (21-32)
[2022-07-24 14:40] LABS: ALKALINE PHOSPHATASE 113 U/L (40-136); CREATININE SERUM 0.71 MG/DL (0.60-1.30); GFR ESTIMATED 102
[2022-07-24 14:41] LABS: BUN/CREATININE RATIO 18
[2022-07-24 14:43] LABS: ALANINE AMINOTRANSFERASE 21 U/L (0-55)
[2022-07-24 15:43] VITALS: BP 163/77
== END 2022-07-24 15:43 | disposition home or self-care (01) ==
LOC: EDUNIT# 13:38 → ER 13:41
DX: G43.909 Migraine, unspecified, not intractable, without status migrainosus (principal); E11.9 Type 2 diabetes mellitus without complications; Z79.4 Long term (current) use of insulin; Z87.891 Personal history of nicotine dependence
CPT/HCPCS: 36415; 80053; 84484; 85025; 93005; 93041